=== PATIENT | female | born 1960 | race Caucasian/White ===

== ENCOUNTER → 2018-01-27 13:05 | Outpatient (CLI) | payer OTHER, SELFPAY | PROVIDERS: Family Provider Family Medicine; PCP Family Medicine; Visit Provider Internal Medicine Pulmonary Disease | DX: Q24.8 Other specified congenital malformations of heart (principal) | CPT/HCPCS: 71046 ==

== ENCOUNTER → 2019-01-21 | Outpatient (CLI) | payer OTHER, SELFPAY ==
--- NOTE | 2019-01-21 09:55 | RAD_ITS ---
STUDY: X-RAY CHEST REASON FOR EXAM: Female, 58 years old. Pericardial cyst TECHNIQUE: PA and lateral COMPARISON: January 27, 2018. FINDINGS: The lungs are clear and expanded. There is no demonstrated pleural abnormality. Small soft tissue density in the right cardiophrenic sulcus consistent with known pericardial cyst Normal size heart. Normal mediastinum. Tiny calcified left hilar nodes. Normal visualized pulmonary arteries. Normal visualized aortic arch and descending thoracic aorta. Dorsal spine demonstrates mild spondylosis. Normal visualized ribs, clavicles, and shoulders. There is no demonstrated abnormality of the visualized soft tissue structures of the upper abdomen. No change since prior exam RAD/Chest PA and Lateral IMPRESSION: Stable appearance to right pericardial cyst. No acute disease Electronically Signed: Neftaly Johnson MD at 17:20 EDT , Service support ,
== END | disposition home or self-care (01) ==
PROVIDERS: Family Provider Family Medicine; PCP Family Medicine; Referring Provider Internal Medicine Pulmonary Disease; Visit Provider Internal Medicine Pulmonary Disease
DX: Q24.8 Other specified congenital malformations of heart (principal)
CPT/HCPCS: 71046

== ENCOUNTER → 2022-02-13 | Outpatient (CLI) | payer OTHER, SELFPAY ==
--- NOTE | 2022-02-13 08:37 | BI_ITS ---
MAMMOGRAPHY - BILATERAL SCREENING REASON FOR EXAM: Female, 61 years old. Routine annual screening examination. PERTINENT HISTORY: Aunt with breast cancer. TECHNIQUE: Digital bilateral breast tho (3D mammographic acquisition) in the CC and MLO projections. 2-D mediolateral oblique (MLO) and craniocaudad (CC) views of both breasts were obtained. CAD: Full Field Digital Mammography with Computer Added Detection was performed. COMPARISON: Comparison is made with prior outside examination dated 02/12/2021. FINDINGS: Breast Composition: The breasts are extremely dense, which lowers the sensitivity of mammography. There are no dominant masses or suspicious calcifications. Stable small benign-appearing bilateral axillary lymph nodes. No other significant abnormalities are identified. There has been no significant change since the prior study. BI/SCRN MAMM (CAD)W/THO BILAT IMPRESSION: Stable bilateral screening mammogram. Yearly follow-up mammogram recommended. (A) ASSESSMENT CATEGORY: BIRADS Category 2: Benign. A letter regarding these results will be sent to the patient by the facility within 30 days. Approximately 10% of breast cancers are not detected by mammography. A normal mammogram should not delay biopsy of a clinically suspicious abnormality. [id number] Electronically Signed: Anthony Montalvo MD at 9:59 EDT ,
== END | disposition home or self-care (01) ==
LOC: OPBI 08:36
PROVIDERS: PCP Internal Medicine; Visit Provider Internal Medicine
DX: Z12.31 Encounter for screening mammogram for malignant neoplasm of breast (principal); N60.19 Diffuse cystic mastopathy of unspecified breast
CPT/HCPCS: 77063; 77067

== ENCOUNTER → 2023-02-19 | Outpatient (CLI) | payer OTHER, SELFPAY ==
--- NOTE | 2023-02-19 08:46 | BI_ITS ---
MAMMOGRAPHY - BILATERAL SCREENING REASON FOR EXAM: Female, 62 years old. Routine annual screening examination. PERTINENT HISTORY: Aunt with breast cancer. TECHNIQUE: Digital bilateral breast tho (3D mammographic acquisition) in the CC and MLO projections. 2-D mediolateral oblique (MLO) and craniocaudad (CC) views of both breasts were obtained. CAD: Full Field Digital Mammography with Computer Added Detection was performed. COMPARISON: Comparison is made with prior study dated February 13, 2022. FINDINGS: Breast Composition: The breasts are extremely dense, which lowers the sensitivity of mammography. There are no dominant masses or suspicious calcifications. Stable small benign-appearing bilateral axillary lymph nodes. No other significant abnormalities are identified. There has been no significant change since the prior study. BI/SCRN MAMM (CAD)W/THO BILAT IMPRESSION: Stable bilateral screening mammogram. Yearly follow-up mammogram recommended. (A) ASSESSMENT CATEGORY: BIRADS Category 2: Benign. A letter regarding these results will be sent to the patient by the facility within 30 days. Approximately 10% of breast cancers are not detected by mammography. A normal mammogram should not delay biopsy of a clinically suspicious abnormality. [id number] Electronically Signed: Anthony Montalvo MD at 10:07 EDT ,
== END | disposition home or self-care (01) ==
LOC: OPBI 08:45
PROVIDERS: PCP Internal Medicine; Referring Provider Internal Medicine; Visit Provider Internal Medicine
DX: Z12.31 Encounter for screening mammogram for malignant neoplasm of breast (principal); Z80.3 Family history of malignant neoplasm of breast
CPT/HCPCS: 77063; 77067

== ENCOUNTER 2023-11-24 09:09 | Outpatient (CLI) | payer OTHER, SELFPAY ==
[2023-11-24 10:20] LABS: Absolute Lymphocyte Count 3.36 X10^3/uL (0.83-4.51); Absolute Neutrophil Count 3.2 X10^3/uL (2.0-7.7); Basophil# 0.11 X10^3/uL; Basophil% 1.5 % (0-1); Eosinophil# 0.22 X10^3/uL; Hematocrit 41.1 % (37-47); Hemoglobin 13.5 g/dL (12.0-15.0); Lymphocyte # 3.36 X10^3/ul (0.83-4.51); Lymphocyte % 46.3 % (19-41); Mean Corp Hgb Conc 32.8 g/dL (32-36); Mean Corpuscular Hgb 30.5 pg (27.0-32.0); Mean Platelet Vol. 10.6 fl (6.2-12.0); Monocyte# 0.39 X10^3/uL; Monocyte% 5.4 % (0-10); NRBC Flagged by Analyzer 0 % (0-5); Neutrophil # 3.15 X10^3/uL (2.7-7.7); Neutrophil % 43.4 % (47-70); POSITIVE MORPHOLOGY YES; Platelet Count 294 K/mm3 (150-450); RBC Distribution Width CV 12.6 % (11.6-14.6); RBC Distribution Width SD 43.3 fl (35.1-43.9); Red Blood Count 4.42 M/mm3 (4.2-5.4); White Blood Count 7.3 K/mm3 (4.4-11.0)
[2023-11-24 10:30] LABS: Differential Indicated SCAN CRITERIA MET
[2023-11-24 10:41] LABS: Vitamin D,25 Hydroxy 24.2 ng/mL
[2023-11-24 10:48] LABS: ALB/GLOB Ratio 0.8 RATIO (0.9-2.4); AST(SGOT) 29 U/L (15-37); Alanine Aminotransfer ALT/SGPT 41 U/L (13-56); Albumin, Serum 3.3 g/dL (3.2-5.0); Alkaline Phosphatase 134 U/L (45-117); Anion Gap 3 (5-15); BUN 10 mg/dL (7-18); Calcium,Total 8.8 mg/dL (8.5-10.1); Chloride 107 mmol/L (98-107); Cholesterol 204 mg/dL (200); Creatinine, Serum 0.56 mg/dL (0.55-1.02); EST Glomerular Filtration Rate 117 mL/min (>60); Est Glom Filt Rate - Afr Amer 142 mL/min (>60); Free T3 2.6 pg/mL (2.18-3.98); Globulin 3.9 g/dL (2.2-4.2); Glucose 92 mg/dL (74-106); High Density Lipoprotein 67 mg/dL; Potassium 4.2 mmol/L (3.5-5.1); Protein, Total 7.2 g/dL (6.4-8.2); Sodium Level 138 mmol/L (136-145); T4 Free Direct 1.02 ng/dL (0.76-1.46); Thyroid Stim Hormone (TSH) 3.45 uIU/mL (0.358-3.74); Triglycerides 77 mg/dL; Very Low Density Lipoprotein 15 mg/dL (5-40)
[2023-11-24 11:09] LABS: Atypical Lymphocyte 1+ %
--- NOTE | 2023-11-24 11:59 | RAD_ITS ---
HISTORY: Cough, URI. TECHNIQUE: XR Chest 2 Views. COMPARISON: 01/21/2019. FINDINGS: CARDIOMEDIASTINAL BORDERS: Cardiac silhouette within normal limits in size with convexity at the right cardiophrenic angle again seen, probable pericardial cyst. Mediastinal contour unremarkable. LUNGS: Radiographically clear. PLEURA: No pleural effusion or pneumothorax seen. OSSEOUS STRUCTURES: Unremarkable. RAD/Chest PA and Lateral IMPRESSION: No acute cardiopulmonary process identified. Electronically Signed: Ladonna Alcantara MD at 9:00 EDT ,
== END 2023-11-24 23:59 | disposition home or self-care (01) ==
PROVIDERS: PCP Internal Medicine; Referring Provider Internal Medicine; Visit Provider Internal Medicine
DX: Z00.00 Encounter for general adult medical examination without abnormal findings (principal); J06.9 Acute upper respiratory infection, unspecified; R05.9 Cough, unspecified
CPT/HCPCS: 36415; 71046; 80053; 80061; 82306; 84439; 84443; 84481; 85025

== ENCOUNTER → 2024-02-24 | Outpatient (CLI) | payer OTHER, SELFPAY ==
--- NOTE | 2024-02-24 10:51 | BI_ITS ---
MAMMOGRAPHY - BILATERAL SCREENING REASON FOR EXAM: Female, 63 years old. Routine annual screening examination. PERTINENT HISTORY: Aunt with breast cancer. TECHNIQUE: Digital bilateral breast tho (3D mammographic acquisition) in the CC and MLO projections. 2-D mediolateral oblique (MLO) and craniocaudad (CC) views of both breasts were obtained. CAD: Full Field Digital Mammography with Computer Added Detection was performed. COMPARISON: Comparison is made with prior study February 19, 2023 and February 13, 2022. FINDINGS: Breast Composition: The breasts are extremely dense, which lowers the sensitivity of mammography. There are no dominant masses or suspicious calcifications. No other significant abnormalities are identified. There has been no significant change since the prior study. BI/SCRN MAMM (CAD)W/THO BILAT IMPRESSION: Stable bilateral screening mammogram. Yearly follow-up mammogram recommended. (A) ASSESSMENT CATEGORY: BIRADS Category 1: Negative. A letter regarding these results will be sent to the patient by the facility within 30 days. Approximately 10% of breast cancers are not detected by mammography. A normal mammogram should not delay biopsy of a clinically suspicious abnormality. [id number] Electronically Signed: Anthony Montalvo MD at 12:01 EDT ,
== END | disposition home or self-care (01) ==
LOC: OPBI 10:45
PROVIDERS: PCP Internal Medicine; Referring Provider Internal Medicine; Visit Provider Internal Medicine
DX: Z12.31 Encounter for screening mammogram for malignant neoplasm of breast (principal); Z80.3 Family history of malignant neoplasm of breast
CPT/HCPCS: 77063; 77067

== ENCOUNTER → 2024-07-20 | Outpatient (CLI) | payer OTHER, MEDICARE, SELFPAY | END | disposition home or self-care (01) | LOC: LABSPEC 11:39 | PROVIDERS: PCP Internal Medicine; Visit Provider Internal Medicine | DX: R30.0 Dysuria (principal) | CPT/HCPCS: 87077; 87086; 87088; 87186 ==

== ENCOUNTER 2025-02-24 04:53 | Emergency (ER) | payer MEDICARE, OTHER, SELFPAY ==
[2025-02-24] VITALS (9 sets, daily range): BP systolic 112–137; BP diastolic 56–75; PULSE 80–91; RESP 10–20; TEMP 36.6–37.2; O2SAT 95–100; BMI 24.0
--- NOTE | 2025-02-24 05:35 | RAD_ITS ---
PROCEDURE: CHEST PA AND LATERAL 02/24/2025 REASON FOR EXAM: CHEST PAIN TECHNIQUE: Procedure Code: RADCXR Modality: DX Procedure: CHEST PA AND LATERAL COMPARISON: November 24, 2023 FINDINGS: Hardware: EKG leads Heart: Normal Mediastinum: The mediastinal contour is unremarkable. Lungs: Clear. No pneumothorax or pleural effusion. Bones: The bones are unremarkable. RAD/Chest PA and Lateral IMPRESSION: No acute abnormality Reading Location: [id number]
[2025-02-24 05:45] LABS: Hematocrit 39.2 % (37-47); Hemoglobin 13.4 g/dL (12.0-15.0); Immature Granulocytes Count 0.030 X10^3/uL (0.0-0.0); Mean Corp Hgb Conc 34.2 g/dL (32-36); Mean Corpuscular Volume 89.5 fL (81-99); Mean Platelet Vol. 10.9 fl (6.2-12.0); NRBC Flagged by Analyzer 0 % (0-5); Platelet Count 221 K/mm3 (150-450); RBC Distribution Width CV 12.8 % (11.6-14.6); RBC Distribution Width SD 42.5 fl (35.1-43.9); Red Blood Count 4.38 M/mm3 (4.2-5.4); White Blood Count 5.1 K/mm3 (4.4-11.0)
--- OUTSIDE RECORDS SUMMARY | 2025-02-24 05:45 | XMS RPT_ITS | CCD ---
Author Organization [facility] Care Team Providers Care Commonwealth Attorney Name Role Phone Radha YANG, Luis Daniel Werner Primary Care Provider Bonita ARSHAD MD, Mateusz Mcgee Primary Care Provider Meg haleigh Siddiqui MD, Orly Thurston Primary Care Provider ORLY SIDDIQUI Primary Care Unavailable LEDY JAMES Attending Unavailable SELF Referring Unavailable Orly Siddiqui Referring Unavailable Orly Siddiqui Primary Care Unavailable Pamela Kaiser Attending UnavailOrly Ahn Primary Care Unavailable Orly Siddiqui Attending Unavailable Orly Siddiqui Referring Unavailable Orly Siddiqui Primary Care Unavailable Orly Siddiqui Attending Unavailable Orly Siddiqui Primary Care Unavailable Shaun Fink Attending Unavailable Orly Siddiqui Referring Unavailable Orly Siddiqui Primary Care Unavailable Manny Brown Attending Unavailable Orly Siddiqui Referring Unavailable Allergies Allergy Classification Reported Allergen(s) Allergy Type Date of Onset Reaction(s) Facility (2 sources) Bacitracin Drug Allergy 2 [facility] (1 source) Contrast media Allergy to substance 2 [facility] Work Phone: (2 sources) Neomycin Drug Allergy 2 [facility] (2 sources) Polymyxin B Drug Allergy 2 [facility] (4 sources) bacitracin / neomycin / polymyxin b; Translations: [NEOMYCIN-BACITRAC IN-POLYMYXIN] Drug Allergy 6 [facility] Work Phone: (3 sources) IMAGING DYE [Other] Propensity to adverse reactions 6 Intolerance [facility] (1 source) Triiodobenzoic Acids Allergy to substance [address] [facility] (1 source) OTHER; Translations: [OTHER] Propensity to adverse reactions (disorder) 6 [facility] (1 source) Bacitracin Drug Allergy [address] [facility] Rep[facility] (1 source) Neomycin Drug Allergy [address] [facility] (1 source) Iodinated Contrast Media Drug allergy (disorder) [address] [facility] Rep[facility] (1 source) polymyxin B Drug allergy (disorder) [address] [facility] Rep[facility] Medications Current Medications Medication Drug Class(es) Dates Sig (Normalized) Sig (Original) estradiol 0.1 mg/ml vaginal cream (3 sources) Estrogen Start: 01-21-2019 estradiol (ESTRACE) 0.01 % (0.1 mg/gram) vaginal cream Use a pea sized amount to the vaginal area 3 times a week. 1 Tube 4 01/21/2019 Active Comment on above: Use a pea sized amou nt to the vaginal area 3 times a week. levothyroxine sodium 0.075 mg oral tablet (7 sources) l-Thyroxine Start: 05-04-2020 End: 09-02-2022 take 75 ug by mouth once daily Levothyroxine Active 75 MCG PO DAILY September 02, 2022 7:47am Problems Active Problems Problem Classification Problem Date Documented Date Episodic/Chronic Cardiac and circulatory congenital anomalies (3 sources) Pericardial cyst; Translations: [Other specified congenital malformations of heart] Onset: 02-17-2018 02-17-2018 Chronic Genitourinary symptoms and ill-defined conditions (1 source) Dysuria; Translations: [Dysuria] Onset: 11-30-2024 Episodic Menopausal disorders (1 source) Postmenopausal atrophic vaginitis; Translations: [Postmenopausal atrophic vaginitis] Onset: 03-19-2024 Chronic Nonmalignant breast conditions (2 sources) Fibrocystic disease of breast; Translations: [Diffuse cystic mastopathy of unspecified breast] 09-04-2021 Chronic Osteoarthritis (1 source) Osteoarthrosis of the carpometacarpal joint of the thumb; Translations: [Unilateral primary osteoarthritis of first carpometacarpal joint, right hand] 11-01-2024 Chronic Other and ill-defined heart disease (3 sources) Rupture of chordae tendineae; Translations: [Rupture of chordae tendineae, not elsewhere classified] Onset: 11-14-2016 11-14-2016 Chronic Other connective tissue disease (1 source) Triggering of digit; Translations: [Trigger finger, right middle finger] 11-01-2024 Episodic Spondylosis; intervertebral disc disorders; other back problems (1 source) Chronic low back pain; Translations: [Chronic midline low back pain without sciatica] 05-22-2020 Episodic Thyroid disorders (3 sources) Hypothyroidism; Translations: [Hypothyroidism, unspecified] Onset: 07-16-2013 07-16-2013 Chronic Unclassified (1 source) Acute cough; Translations: [Acute cough] Onset: 11-30-2024 Urinary tract infections (1 source) Acute cystitis with hematuria; Translations: [Acute cystitis with hematuria] Onset: 11-30-2024 Episodic Past or Other Problems Problem Classification Problem Date Documented Date Episodic/Chronic Allergic reactions (2 sources) Atopic dermatitis; Translations: [Other atopic dermatitis] Onset: 03-11-2008 Resolved: 11-24-2012 11-24-2012 Chronic Allergic reactions (5 sources) Solar degeneration; Translations: [Other skin changes due to chronic exposure to nonionizing radiation] Onset: 02-06-2006 Resolved: 11-24-2012 06-18-2011 Episodic Benign neoplasm of uterus (3 sources) Uterine leiomyoma; Translations: [Leiomyoma of uterus, unspecified] Onset: 02-14-2012 02-14-2012 Episodic Deficiency and other anemia (2 sources) Iron deficiency anemia; Translations: [Iron deficiency anemia, unspecified] Onset: 02-28-2010 Resolved: 11-14-2016 11-14-2016 Episodic E Codes: Adverse effects of medical drugs (3 sources) Allergic reaction to substance; Translations: [Adverse effect of diagnostic agents, initial encounter] Onset: 09-26-2014 09-26-2014 Episodic Menstrual disorders (2 sources) Excessive and frequent menstruation; Translations: [Excessive and frequent menstruation with regular cycle] Onset: 02-14-2012 Resolved: 09-26-2014 09-26-2014 Chronic Other and unspecified benign neoplasm (2 sources) Benign neoplasm of skin of trunk; Translations: [Other benign neoplasm of skin of trunk] Onset: 09-18-2006 Resolved: 11-24-2012 11-24-2012 Episodic Other and unspecified benign neoplasm (2 sources) Benign neoplasm of skin of lower limb; Translations: [Other benign neoplasm of skin of unspecified lower limb, including hip] Onset: 09-18-2006 Resolved: 11-24-2012 11-24-2012 Episodic Other and unspecified benign neoplasm (2 sources) Dermatofibroma; Translations: [Other benign neoplasm of skin of unspecified lower limb, including hip] Onset: 07-11-2009 Resolved: 09-26-2014 09-26-2014 Episodic Other and unspecified benign neoplasm (2 sources) Dermatofibroma of right lower limb; Translations: [Other benign neoplasm of skin of right lower limb, including hip] Onset: 11-24-2012 Resolved: 09-26-2014 09-26-2014 Episodic Other and unspecified benign neoplasm (2 sources) Hemangioma of skin; Translations: [Hemangioma of skin and subcutaneous tissue] Onset: 02-26-2013 Resolved: 09-26-2014 09-26-2014 Episodic Other circulatory disease (2 sources) Osler hemorrhagic telangiectasia syndrome; 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] Onset: 03-23-2007 Resolved: 05-20-2012 05-20-2012 Chronic Other circulatory disease (2 sources) Non-neoplastic nevus; Translations: [Nevus, non-neoplastic] Onset: 09-18-2006 Resolved: 11-24-2012 11-24-2012 Episodic Other lower respiratory disease (3 sources) Other nonspecific abnormal finding of lung field; Translations: [Swelling, mass, or lump in chest] Onset: 09-23-2014 11-14-2016 Episodic Other screening for suspected conditions (not mental disorders or infectious disease) (4 sources) Patient encounter status; Translations: [Encounter for other screening for malignant neoplasm of breast] Onset: 03-15-2024 Episodic Other skin disorders (2 sources) Actinic keratosis; Translations: [Actinic keratosis] Onset: 02-06-2006 Resolved: 09-26-2014 09-26-2014 Episodic Other skin disorders (2 sources) Seborrheic keratosis; Translations: [Other seborrheic keratosis] Onset: 02-06-2006 Resolved: 11-24-2012 11-24-2012 Episodic Other skin disorders (2 sources) Disorder of skin pigmentation; Translations: [Disorder of pigmentation, unspecified] Onset: 02-06-2006 Resolved: 11-24-2012 11-24-2012 Episodic Other skin disorders (2 sources) Sebaceous cyst of skin; Translations: [Sebaceous cyst] Onset: 02-06-2006 Resolved: 11-24-2012 11-24-2012 Episodic Other skin disorders (2 sources) Inflamed seborrheic keratosis; Translations: [Inflamed seborrheic keratosis] Onset: 03-23-2007 Resolved: 09-26-2014 09-26-2014 Episodic Other skin disorders (2 sources) Acne; Translations: [Other acne] Onset: 03-11-2008 Resolved: 11-24-2012 11-24-2012 Episodic Viral infection (2 sources) Verruca vulgaris; Translations: [Viral wart, unspecified] Onset: 03-23-2007 Resolved: 11-24-2012 11-24-2012 Episodic Results Test Name Value Interpretation Reference Range Facil ity CNOVon 11-01-2024 CNOV Office Visit (ORTHWS ) MADALYN CASTANEDA ([id number]) 1960 F Date Time Provider Department 11/01/24 1:15 PM LEDY JAMES During your visit today, we recorded the following information about you: Ledy James MD 11/01/2024 2:29 PM Signed Ledy James MD Department of Orthopaedics Orthopa[facility] [address] [place] [id number] Dept: [phone] Dept November 01, 2024 CHIEF COMPLAINT: New and Pain of the Right Hand HPI Madalyn is a 64-year-old female presenting with right middle finger triggering at night. Madalyn reports that her right middle finger triggers every night, but never during the day. She describes the finger as ratcheting and notes a tight sensation in the joint, though it is not painful. She is able to manually extend the finger when it triggers. She denies any previous episodes of similar symptoms. She also reports stiffness in her hands at night, which she attributes to frequent tossing and turning during sleep. She notes that her hands often feel stiff upon waking, and she has difficulty opening things and gripping, particularly in the right thumb. She experiences pain in the right thumb when gripping, which she attributes to arthritis. She also reports swelling and tenderness in the right ring finger, which she believes is related to arthritis. ASSESSMENT: M65.331 Trigger middle finger of right hand (primary encounter diagnosis) M18.11 Primary osteoarthritis of first carpometacarpal joint of right hand 1. Trigger middle finger of right hand (M65.331) Experiencing nocturnal triggering of the right middle finger, with palpable tightness at the A1 heather. No significant tenderness or daytime locking observed on examination. - Educated patient on the pathophysiology of trigger finger, including the role of tendon swelling and the A1 heather. - Provided a ring splint to be worn at night to prevent flexion and reduce the risk of triggering. - Discussed the potential for corticosteroid injection if symptoms persist or worsen. - Advised monitoring symptoms and follow-up if no improvement is noted with splint use. 2. Primary osteoarthritis of first carpometacarpal joint of right hand (M18.11) Exhibiting signs of osteoarthritis in the first carpometacarpal joint, with associated pain and difficulty in gripping and pinching activities. - Provided a thumb splint to offload the joint during activities that exacerbate symptoms. - Recommended [id number] Voltaren gel for topical application to the affected joint to reduce inflammation and pain. - Discussed the possibility of corticosteroid injections or surgical intervention if conservative measures fail to provide relief. Will continue to monitor patient for Trigger middle finger of right hand (primary encounter diagnosis) Primary osteoarthritis of first carpometacarpal joint of right hand, patient to schedule visit as per follow up discussed. OBJECTIVE: Ms. Madalyn Castaneda is a pleasant 64 year old in no apparent distress. Gen:LMP 02/23/2012 nl development, non obese, no deformities ENT: Normocephalic, normal hearing, moist mucosa CV: Pulses:Radial= 2+ and symmetric, capillary refill < 2 secs, no peripheral edema/varicosities Skin: no rash, bruising or lesions. Good turgor. Psych: cooperative and appropriate, alert and oriented x 3, good mood and affect. Musculoskeletal: - Musculoskeletal: - Right Middle Finger: Palpable crepitus over the A1 heather, no significant tenderness noted. No locking. Mild swelling and minor tenderness at the Thumb, basal joint. Arthritic changes at DIP of the index,and stiffness at the ring finger, PIP joint. 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 Normal [facility] Urine Cultureon 07-22-2024 URC Escherichia coli [place] Count 80,000-100,000 Escherichia coli: REACTION Ampicillin Islt STEVE <=2 Ampicillin+Sulbac Islt STEVE <=2 S Cefepime Islt STEVE <=0.12 S cefTRIAXone Islt STEVE <=0.25 S Ciprofloxacin Islt STEVE <=0.06 S B-Lactamase Extended Susc Islt NEG Gentamicin Islt STEVE <=1 S levoFLOXacin Islt STEVE <=0.12 S Meropenem Islt STEVE <=0.25 S Nitrofurantoin Islt STEVE <=16 S Pip+Tazo Islt STEVE <=4 S TMP SMX Islt STEVE <=[address] [facility] Comment on above: Performed By: #### M [id number] #### [facility] [address] [place], [address] Urgent Care Visit Reporton 0 07-20-2024 Urgent Care Visit Report [facility] [address], [address] [place] [address] OFFICE VISIT Date of Service: 07/20/24 MR#: [id number] Acct: [id number] Name: MADALYN CASTANEDA Rep #: [id number] : 1960 Provider: LIZANDRO Fink Age/Sex: 64/F Location: [facility] [place] Status: Signed Intake Vital Signs 07/09/24 09:37 07/20/24 11:25 Height 5 ft 6 in 5 ft 6 in Weight: 150 lb 6 oz 149 lb 6 oz BMI 24.3 24.0 BP 130/82 H 120/82 H Blood Pressure Location Rt brachial Position Sitting Sitting Respiration 16 Pulse 80 78 Pulse Source NIBP Temp 98.7 F 98.7 F Temp Source Oral Oral Pulse Oximetry (%) 97 98 Oxygen Delivery Method room air room air Intake Visit Reasons: Urinary tract infection Chief Complaint: c Accompanied by: Self Allergies bacitracin (From Neosporin ([id number])) Allergy (Mild, Verified 07/20/24 11:26) rash Iodinated Contrast Media (CT) Allergy (Mild, Verified 07/20/24 11:26) Hives neomycin (From Neosporin ([id number])) Allergy (Mild, Verified 07/20/24 11:26) rash polymyxin B (From Neosporin ([id number])) Allergy (Mild, Verified 07/20/24 11:26) rash Medications ???Medication ???Instructions ???Recorded ???Confirmed ???Type levothyroxine 75 mcg tablet 75 mcg PO DAILY #90 tabs 08/19/23 07/20/24 Rx benzonatate 100 mg capsule 100 mg PO TID PRN PRN cough 4 days 07/20/24 07/20/24 Rx #10 caps nitrofurantoin 100 mg PO Q12H 5 days #10 caps 10/0807/20/24 Rx monohydrate/macrocrys tals 100 mg capsule (Macrobid) Have you fallen in the past year?: No Nurse's Note: Patient has been having some burning with urination and frequency and not empting her bladder completely. [facility] Medical History (Updated 07/20/24 @ 11:34 by LIZANDRO Fierro) Acute cough Thyroglossal cyst Pericardial cyst Thyroid disease Skin cancer Surgical History History of hysterectomy Family History Mother Cancer Thyroid disorder Father Cancer CVA (cerebral vascular accident) Social History (Updated 03/19/24 @ 08:03 by Skylar Byrd) household members: spouse Smoking Status: Never smoker alcohol intake: current alcohol intake frequency: holidays/special occasions only substance use type: does not use what type of physical activity do you participate in: walking frequency: 3-4 times per week seatbelt use: always do you feel safe at home: Yes additional social history: - Wander HPI HPI Chief Complaint: c Details: MADALYN CASTANEDA, is a 64 F who presents to the office today for HPI: Patient presents today with concerns for possible UTI with urinary frequency urgency and burning that started yesterday. She also notes a residual cough after having what was most likely influenza 1-2 weeks ago. She otherwise denies any nausea vomiting or fever. ROS: As noted in HPI Physical Exam: VITALS: Reviewed. GEN: Healthy appearing, well-developed, NAD. PSYCH: AOx3. Normal memory, mood, and affect. HEENT -Eyes: -No discharge or redness; -Ears: -Mouth and throat: Moist mucous membranes. NECK: CV: Regular rate and rhythm LUNGS: Normal respiratory effort. Lungs clear bilaterally. SKIN: Warm, well perfused. No skin rashes or abnormal lesions noted. MSK: Normal gait. NEURO: Ambulating with no limitations. Normal muscle strength and tone. No focal deficits. Results POC Urinalysis Dip (Clinic) Office Urine Color YELLOW Last Edit by Charlee Dial MA on 07/20/24 11:28 Office Urine Clarity Cloudy Last Edit by Charlee Dial MA on 07/20/24 11:28 Office Urine Glucose Negative Last Edit by Charlee Dial MA on 07/20/24 11:28 Office Urine Ketones Trace (5) Last Edit by Charlee Dial MA on 07/20/24 11:28 Off Ur Spec Moore 1.010 Last Edit by Charlee Dial MA on 07/20/24 11:28 Office Urine pH 5.0 Last Edit by Charlee Dial MA on 07/20/24 11:28 Office Urine Bilirubin Negative Last Edit by Charlee Dial MA on 07/20/24 11:28 Office Urine Urobilinogen 1 mg/dL Last Edit by Charlee Dial MA on 07/20/24 11:28 Office Urine Blood Hemolyzed Last Edit by Charlee Dial MA on 07/20/24 11:28 Office Urine Blood Hemolyzed Large Last Edit by Charlee Dial MA on 07/20/24 11:28 Office Urine Protein Negative Last Edit by Charlee Dial MA on 07/20/24 11:28 Office Urine Nitrate Negative Last Edit by Charlee Dial MA on 07/20/24 11:28 Off Ur Leukocytes Positive Last Edit by Charlee Dial MA on 07/20/24 11:28 moderate Charlee Dial 07/20/24 11:28 Coding Level of Care Code Off vis,new,level 3 Diagnoses Acute cystitis with hematuria N30.01 Urinary tract infection type: acute cystitis Hematuria presence: with hematuria Acute cough R05. (more content not included)... Normal [facility] Urgent Care Visit Reporton 0 07-09-2024 Urgent Care Visit Report [facility] [address], [address] [place] [address] OFFICE VISIT Date of Service: 07/09/24 MR#: [id number] Acct: [id number] Name: MADALYN CASTANEDA Everardo Rep #: [id number] : 1960 Provider: DANIELA Hernandez Age/Sex: 63/F Location: [facility] – [place] Status: Signed Intake Vital Signs 03/19/24 08:03 07/09/24 09:37 Height 5 ft 6 in 5 ft 6 in Weight: 150 lb 6 oz BMI 24.3 BP 130/82 H Blood Pressure Location Rt brachial Position Sitting Respiration 16 Pulse 80 Pulse Source NIBP Temp 98.7 F Temp Source Oral Pulse Oximetry (%) 97 Oxygen Delivery Method room air Intake Visit Reasons: Cough Chief Complaint: cough, fever, wheeze 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 Is patient in pain?: No Allergies bacitracin (From Neosporin (rky-hcn-ipmcn)) Allergy (Mild, Verified 07/09/24 09:46) rash Iodinated Contrast Media (CT) Allergy (Mild, Verified 07/09/24 09:46) Hives neomycin (From Neosporin (lbd-fho-xlaeb)) Allergy (Mild, Verified 07/09/24 09:46) rash polymyxin B (From Neosporin (tlu-vlm-ovbhh)) Allergy (Mild, Verified 07/09/24 09:46) rash Medications ???Medication ???Instructions ???Recorded ???Confirmed ???Type levothyroxine 75 mcg tablet 75 mcg PO DAILY #90 tabs 08/19/23 07/09/24 Rx Is last menstrual period known: No Post menopausal: Yes Patient : No Have you fallen in the past year?: No Nurse's Note: cough, fever, wheeze x 36 hours. declines viral testing [facility] Medical History Thyroglossal cyst Pericardial cyst Thyroid disease Skin cancer Surgical History History of hysterectomy Family History Mother Cancer Thyroid disorder Father Cancer CVA (cerebral vascular accident) Social History (Updated 03/19/24 @ 08:03 by Skylar Byrd) household members: spouse Smoking Status: Never smoker alcohol intake: current alcohol intake frequency: holidays/special occasions only substance use type: does not use what type of physical activity do you participate in: walking frequency: 3-4 times per week seatbelt use: always do you feel safe at home: Yes additional social history: - Wander HPI HPI Chief Complaint: cough, fever, wheeze Details: MADALYN CASTANEDA, is a 63 F who presents to the office today for cough, congestion and fever. Patient states that she has had the fever intermittently for the past 3 days. She wants to make sure that she does not have abnormal lung sounds as she felt like she had some gurgling last night that resolved. She is unaware of her fever Tmax. She denies hemoptysis, shortness of breath or difficulty breathing. No loss of taste or smell. No other associated symptoms or alleviating/aggravati ng factors. ROS Const Constitutional: No other (6 system ROS completed with pertinent findings in the HPI otherwise normal.) Exam Const General: cooperative and well developed HENMT Head: normal to inspection and atraumatic Ears: hearing grossly normal bilaterally Nose: nasal discharge clear Face and sinus: normal facial exam Mouth: oral mucosae normal Throat: abnormal tonsil bilaterally hypertrophy 1+ Resp Effort Inspection: normal respiratory effort and no audible wheezes Auscultation: Bilateral: Clear to Auscultation Cardio Palpation: normal PMI Rate: regular rate Rhythm: regular rhythm Neuro General: patient alert and CN's II-XI intact bilaterally Psych Appearance: grossly normal Mental Status: mental status grossly normal Coding Level of Care Code Off vis,new,level 3 Diagnoses Acute URI J06.9 Assessment and Plan Assessment and Plan (1) Acute URI: Status: Acute Plan: Encouraged to get plenty of rest, drink lots of clear liquids, and use Tylenol or Ibuprofen (unless contraindicated) for fever and comfort. Patient also educated on other symptomatic management techniques. To be seen in 7-10 days if no improvement; sooner if worsening of symptoms. Patient advised of potential red flags and when appropriate to report to the ED. Patient verbalized understanding and agreement with all the above. Clinical Quality Measures Falls Risk Screening/Assistive Devices Have you fallen in the past year?: No 07/09/24 1108 Date Manny Martinez Signature: Date (if applicable) CC: Normal [facility] [employer] Office Visit Reporton 03-19-2024 [employer] Office Visit Report [address], [address] [place] [address] OFFICE VISIT Date of Service: 03/19/24 MR#: [id number] Acct: [id number] Name: MADALYN CASTANEDA Rep #: [id number] : 1960 Provider: Dr. 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 Is patient in pain?: No Allergies bacitracin (From Neosporin ([id number]-[id number]-xxhfn)) Allergy (Mild, Verified 03/19/24 07:58) rash Iodinated Contrast Media (CT) Allergy (Mild, Verified 03/19/24 07:58) Hives neomycin (From Neosporin ([id number])) Allergy (Mild, Verified 03/19/24 07:58) rash polymyxin B (From Neosporin ([id number])) Allergy (Mild, Verified 03/19/24 07:58) rash Medications ???Medication ???Instructions ???Recorded ???Confirmed ???Type levothyroxine 75 mcg tablet 75 mcg PO DAILY #90 tabs 08/19/23 03/19/24 Rx oxybutynin chloride 5 mg tablet 5 mg PO BID PRN bladder spasms 30 03/19/24 03/19/24 Rx days #60 tabs Is last menstrual period known: No Post menopausal: Yes Patient : No : No Control Method: Hysterectomy PFSH Medical History Thyroglossal cyst Pericardial cyst Thyroid disease Skin cancer Surgical History History of hysterectomy Family History Mother Cancer Thyroid disorder Father Cancer CVA (cerebral vascular accident) Social History (Updated 03/19/24 @ 08:03 by Skylar Byrd) household members: spouse Smoking Status: Never smoker alcohol intake: current alcohol intake frequency: holidays/special occasions only substance use type: does not use what type of physical activity do you participate in: walking frequency: 3-4 times per week seatbelt use: always do you feel safe at home: Yes additional social history: - Wander History 1 Elective abortions Hx Para 1 Spontaneous abortions Hx # Term Pregnancies Ectopic pregnancies Hx # Pregnancies Multiple births # of living children 1 Past Pregnancies Del. Date Name GA/Weeks Outcome Route Bth Weight Gen Labor Lgth Anesthesia Del Locatn Provider FOB Unknown Dana HPI annual/per JV Details: MADALYN CASTANEDA is a 63 year old who presents for annual exam. Last PAP: prior to hyst in 2011 (robotic hyst) History of abnormal PAP: no Last mammogram: 02/24/2024 History of abnormal mammogram: no Colon cancer screening: due next year Other preventative health care screenings: followed by pcp has c/o vaginal dryness and over active bladder Female Reproductive History Questions: metorrhagia: No, sexually active: Yes, dyspareunia: No and PCB: No Menopausal Symptoms: No hot flashes, No night sweats, No weight change, No mood changes, No difficulty concentrating, No sleep problems and No change in libido ROS Const Constitutional: Reports as per HPI; Denies fatigue, increased appetite, poor appetite, night sweats, weight gain or weight loss Cardio Card: Denies chest pain Resp Resp: Denies cough or dyspnea GI GI: Reports as per HPI; Denies abdominal pain, bloating, constipation, nausea or vomiting : Reports as per HPI and other; Denies difficulty voiding, dysuria, hematuria, hot flashes, nipple discharge, pelvic pain, prolapse symptoms, urinary frequency, urinary incontinence, urinary urgency, vaginal discharge, vaginal dryness, vaginal odor or vaginal pruritus Skin Skin/Breast: Denies changing lesions, breast mass, breast pain, breast skin changes or nipple discharge Psych Psych: Denies anxiety, change in libido, depression or difficulty concentrating Exam Const General: cooperative, healthy appearing, comfortable, no acute distress, well developed and well groomed HENMT Head: normal to inspection and normocephalic Ears: hearing grossly normal bilaterally and external ears normal Nose: external nose normal Face and sinus: normal facial exam Neck Neck: normal visual inspection, full ROM and no lymphadenopathy Thyroid: thyroid normal Chest Chest palpation inspection: normal inspection of the chest Breast inspection: normal inspection of the breasts and normal inspection of the axillae Breast palpation: normal palpation of (more content not included)... Normal [facility] SCRN MAMM (CAD)W/THO BILATo n 02-24-2024 SCRN MAMM (CAD)W/THO BILAT [facility] Imaging Services [address] [place], [place] [address] SCRN MAMM (CAD)W/THO BILAT MR#: [id number] Acct: [id number] Name: MADALYN CASTANEDA Rep #: [id number] : 1960 F 63 From: Anthony acosta MD PCP: Dr. Orly Siddiqui MD Status: [facility] Study: SCRN MAMM (CAD)W/THO BILAT Date of Exam: 02/14 Exam# [id number] Ordering Dr: Orly Siddiqui MD [id number] MAMMOGRAPHY - BILATERAL SCREENING REASON FOR EXAM: Female, 63 years old. Routine annual screening examination. PERTINENT HISTORY: Aunt with breast cancer. TECHNIQUE: Digital bilateral breast tho (3D mammographic acquisition) in the CC and MLO projections. 2-D mediolateral oblique (MLO) and craniocaudad (CC) views of both breasts were obtained. CAD: Full Field Digital Mammography with Computer Added Detection was performed. COMPARISON: Comparison is made with prior study February 19, 2023 and February 13, 2022. FINDINGS: Breast Composition: The breasts are extremely dense, which lowers the sensitivity of mammography. There are no dominant masses or suspicious calcifications. No other significant abnormalities are identified. There has been no significant change since the prior study. BI/SCRN MAMM (CAD)W/THO BILAT IMPRESSION: Stable bilateral screening mammogram. Yearly follow-up mammogram recommended. (A) ASSESSMENT CATEGORY: BIRADS Category 1: Negative. A letter regarding these results will be sent to the patient by the facility within 30 days. Approximately 10% of breast cancers are not detected by mammography. A normal mammogram should not delay biopsy of a clinically suspicious abnormality. [id number] Electronically Signed: Anthony Montalvo MD at 12:01 EDT , CC: Dr. Orly Siddiqui MD Acquisition Specialist: Signed Normal [facility] XR Lumbar spine 3 Viewson IMPRESSION: Lumbar spine mild degenerative changes. Acquisition Specialist: PSCB Transcribe Date/Time: May 22 2020 4:38P Dictated by : NAJMA GONCALVES MD This examination was interpreted and the report reviewed and electronically signed by: NAJMA GONCALVES MD on May 22 2020 4:39PM [facility] DIVISION OF RADIOLOGY * * *Final Report* * * DATE OF EXAM: May 22 2020 4:35PM [id number] - XR LUMBAR 3V AP/LAT/L5-S1 / PROCEDURE REASON: multiple diagnoses * * * * Physician Interpretation * * * * EXAM TITLE: XR LUMBAR 3V AP/LAT/L5-S1 EXAM DATE/TIME: 05/22/2020 4:35 PM COMPARISON: None. CLINICAL INDICATION/HISTORY: Low back pain. TECHNIQUE: AP, lateral and cone down lateral views of the lumbar spine are presented. FINDINGS: There are five udt-bcs-tukkynr lumbar vertebrae. No fracture or subluxations are noted. The disc spaces are well preserved. There is mild osteophyte formation. Others: A surgical clips seen in the left pelvis. DIVISION OF RADIOLOGY Provider, [facility] - 05/22/2020 * * *Final Report* * * DATE OF EXAM: May 22 2020 4:35PM [id number] - XR LUMBAR 3V AP/LAT/L5-S1 / PROCEDURE REASON: multiple diagnoses * * * * Physician Interpretation * * * * EXAM TITLE: XR LUMBAR 3V AP/LAT/L5-S1 EXAM DATE/TIME: 05/22/2020 4:35 PM COMPARISON: None. CLINICAL INDICATION/HISTORY: Low back pain. TECHNIQUE: AP, lateral and cone down lateral views of the lumbar spine are presented. FINDINGS: There are five mbk-inr-fbyinyf lumbar vertebrae. No fracture or subluxations are noted. The disc spaces are well preserved. There is mild osteophyte formation. Others: A surgical clips seen in the left pelvis. IMPRESSION IMPRESSION: Lumbar spine mild degenerative changes. Acquisition Specialist: PSCИван Transcribe Date/Time: May 22 2020 4:38P Dictated by : NAJMA GONCALVES MD This examination was interpreted and the report reviewed and electronically signed by: NAJMA GONCALVES MD on May 22 2020 4:39PM EST [facility] Radiology Study observation (narrative) [facility] XR Lumbar spine 3 ViewsOrder ed By: Cclinn Provider on 05-22-2020 [facility] Encounters Encounter Date Encounter Type Care Provider Facility Start: 11-01-2024 End: 11-01-2024 Patient encounter procedure Ledy James MD Work Phone: Orthopaedics Comment on above: Trigger middle finge r of right hand (Primary Dx); Primary osteoarthritis of first carpometacarpal joint of right hand Start: 11-01-2024 End: 11-01-2024 ambulatory ORLY ARTUR Facility:[facility] Start: 07-20-2024 End: 07-20-2024 [facility] Facility:[facility] Start: 07-20-2024 End: 07-20-2024 [facility] Facility:[facility] Start: 07-09-2024 End: 07-09-2024 [facility] Facility:[facility] Start: 03-19-2024 Encounter for gynecological examination (general) (routine) without abnormal findings Pamela Kaiser [facility] Start: 03-19-2024 End: 03-19-2024 ambulatory [facility] Facility:[facility] Start: 02-24-2024 End: 02-24-2024 ambulatory [facility] Start: 02-19-2023 End: 02-19-[address] [facility] Work Phone: Start: 02-19-2023 End: 02-19-2023 Patient encounter procedure [facility] Work Phone: Start: 03-20-2022 ambulatory Luis Daniel Garcia MD Work Phone: Internal Medicine [facility] [place] Start: 02-13-2022 End: 02-13-[address] [facility] Work Phone: Start: 02-13-2022 End: 02-13-2022 Patient encounter procedure [facility] Start: 05-22-2020 End: 05-22-2020 Subsequent hospital visit by physician Xr [facility] Work Phone: Radiology Comment on above: Chronic midline low back pain without sciatica [M54.5, G89.29] Procedures Date Procedure Procedure Detail Performing Clinician Start: 02-19-2023 Screening mammography Start: 02-13-2022 Screening mammography Start: 02-12-2021 Mammography Luis Daniel Bowie MD Work Phone: Start: 05-22-2020 Radex spine lumbosac ral 2/3 views Mateusz Mesa MD Start: 04-14-2020 Colonoscopy Luis Daniel Bowie MD Work Phone: Start: 04-13-2020 Lipid 1996 panel - S kimberlee or Plasma Xr [place] Work Phone: Plan of Treatment Date Care Activity Detail Author Start: 2034 RSV Vaccine (1 - 1-d ose 75+ series) RSV Vaccine (1 - 1-dose 75+ series) [facility] Start: 04-14-2030 Colonoscopy COLONOSCOPY [facility] Start: 04-14-2030 COLORECTAL CANCER SCREENING COLORECTAL CANCER SCREENING [facility] Start: 04-14-2030 Screening for malign ant neoplasm of colon [facility] Start: 05-22-2025 Pneumococcal Vaccine : 50+ (1 of 1 - PCV) Pneumococcal Vaccine: 50+ (1 of 1 - PCV) [facility] Comment on above: Postponed from 07/18 (Declined at this time) Start: 04-13-2025 Lipid panel Lipid Screening [facility] Start: 04-13-2025 LIPID SCREEN LIPID SCREEN [facility] Start: 02-14-2025 Influenza vaccination Influenz a Vaccine (Season Ended) [facility] Start: 2024 Advance Directive Discussion Advance Directive Discussion [facility] Start: 2024 Screening for osteoporosis Bone Density Screening [facility] Start: 02-15-2024 Covid-19 Vaccine () Covid-19 Vaccine ( season) [facility] Start: 02-15-2024 Influenza vaccination Influenza Vacc ine (#1) [facility] Start: 07-16-2023 Urine microalbumin profile [facility] Start: 04-13-2023 DIABETES SCREEN DIABETES SCREEN [facility] Start: 04-13-2023 Diabetes Screening Diabetes Screenin g [facility] Start: 02-14-2022 Influenza vaccination INFLUENZA (#1) [facility] Start: 02-12-2022 Mammography MAMMOGRAM [facility] Start: 02-12-2022 Screening for malign ant neoplasm of breast Mammogram Screening [facility] Start: 11-16-2021 ANNUAL PCP TEAM EXHIBIT ELECTRICIAN TAO DISEASE VISIT ANNUAL PCP TEAM CHRONIC DISEASE VISIT [facility] Start: 06-16-2021 DEPRESSION ASSESSMENT DEPRESSION ASS ESSMENT [facility] Start: 2004 COLOGUARD (FIT-DNA) COLOGUARD (FIT-D NA) [facility] Start: [address] COLONOGRAPHY [facility] Start: 2004 FECAL OCCULT BLOOD FECAL OCCULT BLOO D [facility] Start: 2004 Screening for malign ant neoplasm of colon [facility] Start: 2004 SIGMOIDOSCOPY SIGMOIDOSCOPY [facility] Start: 1977 Anxiety Screening Anxiety Screening [facility] Start: 1977 Depression Screening Depression Scre ening [facility] Start: 1977 HIV SCREENING HIV SCREENING [facility] Start: 1977 HIV screening HIV Screening [facility] Start: 01-16-1960 COVID-19 VACCINE (#1) COVID-19 VACCI NE (#1) [facility] End: 04-19-2023 JASEN SCREENING W THO JASEN SCREENING W THO Radiology Routine Encounter for screening mammogram for breast cancer 1 Occurrences starting 03/20/2022 until 04/19/2023 [facility] Work Phone: Comment on above: 1 Occurrences starti ng 03/20/2022 until 04/19/2023 Immunizations Immunization Date Immunization Notes Care Provider Alexey adler 11-20-2020 zoster vaccine recombinant Luis Daniel Garcia MD Work Phone: [facility] Work Phone: 05-22-2020 zoster vaccine recombinant Luis Daniel Garcia MD Work Phone: [facility] 03-29-2020 influenza virus vaccine, unspecified formulation Xr [place] Work Phone: [facility] 03-20-2016 influenza, seasonal, injectable Luis Daniel Garcia MD Work Phone: [facility] 03-22-2015 influenza virus vaccine, unspecified formulation Luis Daniel Garcia MD Work Phone: [facility] 07-16-2013 tetanus toxoid, redu geronimo diphtheria toxoid, and acellular pertussis vaccine, adsorbed Luis Daniel Garcia MD Work Phone: [facility] 04-12-2011 influenza virus vaccine, unspecified formulation Luis Daniel Garcia MD Work Phone: [facility] Payers Date Payer Category Payer Private Health Insurance MMO MED ICARE SUPPLEMENT Member Subscriber Plan / Payer (Effective 2024-Present) Name: Madalyn Castaneda Relation to Subscriber: Self Name: Madalyn Castaneda Payer ID: Not on file Group ID: Not on file Type: Indemnivishnu Address: [place] [id number] 2024 [place] [address] [id number] 2024 Medicare [id number] 2024 Self-pay [id number] 2024 Unknown [id number] 2014 Unknown [id number] 2007 Unknown [employer] [id number] Unknown [facility] [id number] Unknown [id number] Unknown [id number] Unknown [id number] Unknown [id number] Unknown [id number] Social History Date Type Detail Facility Start: 09-04-[facility]21 [facility] ever [facility] Start: 1960 Sex Assigned At Female [facility] Start: 04-05-2011 [facility] Never smoked tobacco [facility] Start: 04-05-2011 Tobacco use and exposure Smoke less tobacco non-user [facility] Start: 11-16-2020 End: 11-01-2024 Alcohol intake Current drinker of alcohol (finding) [facility] Start: 05-16-2020 History SDOH Alcohol Frequency 3 [facility] Start: 05-16-2020 End: 11-16-2020 History SDOH Alcohol Std Drinks 1 [facility] Start: 05-16-2020 History SDOH Social Connections Phone 5 [facility] Start: 05-16-2020 End: 11-16-2020 History SDOH Physical Activity DPW 2 [facility] Start: 05-16-2020 Education 12 [facility] Start: 1960 Sex Assigned At Not on file [facility] Start: 05-16-2020 End: 05-21-2020 History of Social function [facility] Start: 05-16-2020 End: 05-21-2020 Social connection and isolation panel [facility] Do you belong to any clubs or organizations such as presybeterian groups, unions, fraternal or athletic groups, or school groups? Yes [facility] Are you now , , , , never or living with a partner? [facility] How often to you hav e a drink containing alcohol? 2-4 times a month [facility] How many standard dr inks containing alcohol do you have on a typical day? 1 or 2 [facility] How often do you hav e 6 or more drinks on 1 occasion? Never [facility] How hard is it for y ou to pay for the very basics like food, housing, medical care, and heating Not hard at all [facility] Do you feel stress - tense, restless, nervous, or anxious, or unable to sleep at night because your mind is troubled all the time - these days [OSQ] Not at all [facility] (I/We) worried corey er (my/our) food would run out before (I/we) got money to buy more. Never true [facility] In the past 12 month s, was there a time when you were not able to pay the mortgage or rent on time? No [facility] Start: 04-22-2020 End: 05-22-2020 Exposure to SARS-CoV-2 (event) Not sure [facility] Functional Status Date Assessment Result Facility 09-30-2014 Are you deaf, or do you have serious difficulty hearing No 09/30/2014 12:46 PM EDT Jose Roberto Kim Huang [facility] 09-30-2014 Are you blind, or do you have serious difficulty seeing, even when wearing glasses No 09/30/2014 12:46 PM EDT Cid SalKim [facility] 09-30-2014 Do you have serious difficulty walking or climbing stairs No 09/30/2014 12:46 PM EDT Kim Cid Ma [facility] 09-30-2014 Do you have difficul ty dressing or bathing No 09/30/2014 12:46 PM EDT Kim Cid Ma [facility] 09-30-2014 Because of a physica l, mental, or emotional condition, do you have difficulty doing errands alone such as visiting a physician's office or shopping No 09/30/2014 12:46 PM EDT Cid SalKim [facility] Mental Status Date Assessment Result Facility 09-30-2014 Because of a physica l, mental, or emotional condition, do you have serious difficulty concentrating, remembering, or making decisions No 09/30/2014 12:46 PM EDT Jose Roberto HuangKim [facility] Progress note 11-01-2024 Note Date & Type Note Facility 11-01-2024 Note HNO ID: [id number] Author: JANE GALLEGOS MA Service: ? Author Type: [facility] Type: Progress Notes Filed: 11/01/2024 14:29 Note Text: PT ASSESSMENT - CASTING ROOM [place] presents for Application of brace. Applied Medium Rhizo Forte brace to the right hand and size 11 Oval 8 ring splint to the right middle finger. Patient has been instructed in Care and proper application of brace. Jane Gallegos MA [facility] History of Present illness Narrative 11-01-2024 Jane Gallegos MA - 11/01/2024 1:57 PM EDTPLedy walden MD - 11/01/2024 1:06 PM EDT Note Date & Type Note Facility 11-01-2024 History of Presen t illness Narrative PT ASSESSMENT - CASTING ROOM Madalyn presents for Application of brace. Applied Medium Rhizo Forte brace to the right hand and size 11 Oval 8 ring splint to the right middle finger. Patient has been instructed in Care and proper application of brace. Jane Gallegos MA Ledy James MD Department of Orthopaedics [facility] [address] [place] [address] Dept: [phone] Dept November 01, 2024 CHIEF COMPLAINT: New and Pain of the Right Hand HPI Madalyn is a 64-year-old female presenting with right middle finger triggering at night. Madalyn reports that her right middle finger triggers every night, but never during the day. She describes the finger as ratcheting and notes a tight sensation in the joint, though it is not painful. She is able to manually extend the finger when it triggers. She denies any previous episodes of similar symptoms. She also reports stiffness in her hands at night, which she attributes to frequent tossing and turning during sleep. She notes that her hands often feel stiff upon waking, and she has difficulty opening things and gripping, particularly in the right thumb. She experiences pain in the right thumb when gripping, which she attributes to arthritis. She also reports swelling and tenderness in the right ring finger, which she believes is related to arthritis. ASSESSMENT: M65.331 Trigger middle finger of right hand (primary encounter diagnosis) M18.11 Primary osteoarthritis of first carpometacarpal joint of right hand 1. Trigger middle finger of right hand (M65.331) Experiencing nocturnal triggering of the right middle finger, with palpable tightness at the A1 heather. No significant tenderness or daytime locking observed on examination. - Educated patient on the pathophysiology of trigger finger, including the role of tendon swelling and the A1 heather. - Provided a ring splint to be worn at night to prevent flexion and reduce the risk of triggering. - Discussed the potential for corticosteroid injection if symptoms persist or worsen. - Advised monitoring symptoms and follow-up if no improvement is noted with splint use. 2. Primary osteoarthritis of first carpometacarpal joint of right hand (M18.11) Exhibiting signs of osteoarthritis in the first carpometacarpal joint, with associated pain and difficulty in gripping and pinching activities. - Provided a thumb splint to offload the joint during activities that exacerbate symptoms. - Recommended [id number] Voltaren gel for topical application to the affected joint to reduce inflammation and pain. - Discussed the possibility of corticosteroid injections or surgical intervention if conservative measures fail to provide relief. Will continue to monitor patient for Trigger middle finger of right hand (primary encounter diagnosis) Primary osteoarthritis of first carpometacarpal joint of right hand, patient to schedule visit as per follow up discussed. OBJECTIVE: Ms. Madalyn Castaneda is a pleasant 64 year old in no apparent distress. Gen:LMP 02/23/2012 nl development, non obese, no deformities ENT: Normocephalic, normal hearing, moist mucosa CV: Pulses:Radial= 2+ and symmetric, capillary refill < 2 secs, no peripheral edema/varicosities Skin: no rash, bruising or lesions. Good turgor. Psych: cooperative and appropriate, alert and oriented x 3, good mood and affect. Musculoskeletal: - Musculoskeletal: - Right Middle Finger: Palpable crepitus over the A1 heather, no significant tenderness noted. No locking. Mild swelling and minor tenderness at the Thumb, basal joint. Arthritic changes at DIP of the index,and stiffness at the ring finger, PIP joint. 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 Young [facility] - PAST MEDICAL HISTORY OF 12/2000 SMALL UTERINE FIBROID Rupture of chordae tendineae (HCC) 11/14/2016 small tear in chordae tendinae of the mitral valve seen 10/2002 and again 10/13/14 w/o change or symptoms Tear film insufficiency, unspecified Past Surgical History: PAST SURGICAL HISTORY Procedure Laterality Date COLONOSCOPY FLX DX W/COLLJ SPEC WHEN PFRMD 05/01/10 COLONOSCOPY FLX DX W/COLLJ SPEC WHEN PFRMD 04/14/2020 Colonoscopy DILATION & CURETTAGE DX&/THER NONOBSTETRIC 12/31/2011 LAP HYSTERECTOMY FOR UTERUS 250G OR LESS 05/27/2012 fibroid uterus, menorrhagia LIG/TRNSXJ FLP TUBE ABDL/VAG APPR UNI/BI 1996 PAST SURGICAL HISTORY OF REMOVAL OF A THYROGLOSSAL DUCT CYST SKIN BIOPSY HX VAGINAL HYSTERECTOMY Family History: FAMILY HISTORY Problem Relation Age of Onset Lung Cancer Mother stomach Cancer Father CANCER OF THE BLADDER Stroke Father Coronary Artery Disease Father triple bypass Prostate Cancer Brother Cancer Paternal Grandmother Cancer Paternal Grandfather Breast Cancer Paternal Aunt Cancer Paternal Aunt cancer of breast Cancer Paternal Aunt Cancer Paternal Aunt Cancer Paternal Aunt Cancer Paternal Uncle Cancer Paternal Uncle Social History: Social History Tobacco Use Smoking status: Never Smokeless tobacco: Never Vaping Use Vaping status: Never Used Substance Use Topics Alcohol use: Yes Comment: OCCASIONALLY Drug use: No Medications: Current Outpatient Medications Medication Sig levothyroxine (LEVOXYL) 75 mcg tablet Take 1 tablet by mouth once daily. Take on empty stomach. For thyroid. estradiol (ESTRACE) 0.01 % (0.1 mg/gram) vaginal cream Use a pea sized amount to the vaginal area 3 times a week. No current facility-administered medications for this visit. Allergies: Imaging Dye [Other] and Neosporin [[id number]-[id number]] ROS: General (negative for fatigue, malaise, weight loss/gain) HEENT (negative for headache, earache, recent vision changes, sinus pain, sore throat) Respiratory (no recent shortness of breath, hemoptysis) CV (negative for chest tightness, palpitations) Musculoskeletal (see HPI) Psych (no depression, anxiety) Constitutional: (+) sleep disturbance Musculoskeletal: (+) right middle finger locking at night, (+) hand stiffness at night, (+) difficulty gripping, (+) ring finger swelling, (+) pain with impact to ring finger Recording using Prosetta software for draft documentation of the visit was discussed with the patient/authorized outbound telemarketing representative; all questions welcomed and answered. Patient/authorized outbound telemarketing representative agreed to proceed Ledy James MD ' documented in this encounter [facility] Progress note 11-01-2024 Note Date & Type Note Facility 11-01-2024 Note HNO ID: [id number] Author: LEDY JAMES MD Service: ? Author Type: Physician Type: Progress Notes Filed: 11/01/2024 14:29 Note Text: Ledy James MD Department of Orthopaedics Orthopaedics [address] [place] [facility] [address] Dept: [phone] Dept November 01, 2024 CHIEF COMPLAINT: New and Pain of the Right Hand HPI Madalyn is a 64-year-old female presenting with right middle finger triggering at night. Madalyn reports that her right middle finger triggers every night, but never during the day. She describes the finger as ratcheting and notes a tight sensation in the joint, though it is not painful. She is able to manually extend the finger when it triggers. She denies any previous episodes of similar symptoms. She also reports stiffness in her hands at night, which she attributes to frequent tossing and turning during sleep. She notes that her hands often feel stiff upon waking, and she has difficulty opening things and gripping, particularly in the right thumb. She experiences pain in the right thumb when gripping, which she attributes to arthritis. She also reports swelling and tenderness in the right ring finger, which she believes is related to arthritis. ASSESSMENT: M65.331 Trigger middle finger of right hand (primary encounter diagnosis) M18.11 Primary osteoarthritis of first carpometacarpal joint of right hand 1. Trigger middle finger of right hand (M65.331) Experiencing nocturnal triggering of the right middle finger, with palpable tightness at the A1 heather. No significant tenderness or daytime locking observed on examination. - Educated patient on the pathophysiology of trigger finger, including the role of tendon swelling and the A1 heather. - Provided a ring splint to be worn at night to prevent flexion and reduce the risk of triggering. - Discussed the potential for corticosteroid injection if symptoms persist or worsen. - Advised monitoring symptoms and follow-up if no improvement is noted with splint use. 2. Primary osteoarthritis of first carpometacarpal joint of right hand (M18.11) Exhibiting signs of osteoarthritis in the first carpometacarpal joint, with associated pain and difficulty in gripping and pinching activities. - Provided a thumb splint to offload the joint during activities that exacerbate symptoms. - Recommended [id number] Voltaren gel for topical application to the affected joint to reduce inflammation and pain. - Discussed the possibility of corticosteroid injections or surgical intervention if conservative measures fail to provide relief. Will continue to monitor patient for Trigger middle finger of right hand (primary encounter diagnosis) Primary osteoarthritis of first carpometacarpal joint of right hand, patient to schedule visit as per follow up discussed. OBJECTIVE: Ms. Madalyn Castaneda is a pleasant 64 year old in no apparent distress. Gen:LMP 02/23/2012 nl development, non obese, no deformities ENT: Normocephalic, normal hearing, moist mucosa CV: Pulses:Radial= 2+ and symmetric, capillary refill < 2 secs, no peripheral edema/varicosities Skin: no rash, bruising or lesions. Good turgor. Psych: cooperative and appropriate, alert and oriented x 3, good mood and affect. Musculoskeletal: - Musculoskeletal: - Right Middle Finger: Palpable crepitus over the A1 heather, no significant tenderness noted. No locking. Mild swelling and minor tenderness at the Thumb, basal joint. Arthritic changes at DIP of the index,and stiffness at the ring finger, PIP joint. 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 Young [facility] - PAST MEDICAL HISTORY OF 12/2000 SMALL UTERINE FIBROID Rupture of chordae tendineae (HCC) 11/14/2016 small tear in chordae tendinae of the mitral valve seen 10/2002 and again 10/13/14 w/o change or symptoms Tear film insufficiency, unspecified Past Surgical History: PAST SURGICAL HISTORY Procedure Laterality Date COLONOSCOPY FLX DX W/COLLJ SPEC WHEN PFRMD 05/01/10 COLONOSCOPY FLX DX W/COLLJ SPEC WHEN PFRMD 04/14/2020 Colonoscopy DILATION AND CURETTAGE DXAND/THER NONOBSTETRIC 12/31/2011 LAP HYSTERECTOMY FOR UTERUS 250G OR LESS 05/27/2012 fibroid uterus, menorrhagia LIG/TRNSXJ FLP TUBE ABDL/VAG APPR UNI/BI 1996 PAST SURGICAL HISTORY OF REMOVAL OF A THYROGLOSSAL DUCT CYST SKIN BIOPSY HX VAGINAL HYSTERECTOMY Family History: FAMILY HISTORY Problem Relation Age of Onset Lung Cancer Mother stomach Cancer Father CANCER OF (more content not included)... [facility] History of Present illness Narrative 05-22-2020 Rainey, Tommy Olivera (Rt) - 05/22/2020 4:20 PM EST Note Date & Type Note Facility 05-22-2020 History of Presen t illness Narrative Radiology Service Progress Note PATIENT NAME: Madalyn Castaneda DATE OF SERVICE: May 22, 2020 TIME: 4:25 PM PATIENT IDENTITY VERIFICATION COMPLETED USING TWO (2) IDENTIFIERS: Name and Date of confirmed by patient verbally. FALL SCREENING: Has the patient had 2 falls in the last year or 1 fall with injury or currently using an Ambulatory Assistive Device (Walker, Cane, Wheelchair, Crutches, etc.)? No PATIENT GENDER DATA: Female. status: : No status: NO. PATIENT RELEVANT IMPLANT DATA REVIEWED: Yes RADIOLOGY DEPARTMENT: General X-ray: Exam(s) Completed: Spine X-Ray(s): Lumbar AP / LAT / L5-S1 PERIPHERAL IV DATA: Not applicable SIGNED BY: RT Mariza May 22, 2020 4:25 PM documented in this encounter [facility] History of Past illness Narrative 02-26-2013 Note Date & Type Note Facility 02-26-2013 History of Past i llness Narrative Problem Noted Date Resolved Date Hemangioma of skin 02/26/2013 09/26/2014 Dermatofibroma of right lower leg 11/24/2012 09/26/2014 Excessive or frequent menstruation 02/14/2012 09/26/2014 Iron deficiency anemia 02/28/2010 06/201 7 Dermatofibroma of R Lower Ex tremity: R Leg distal thigh at superior lateral knee area 07/11/2009 09/26/2014 Other atopic dermatitis and related conditions 0 03/11/2008 11/24/2012 Other acne 03/11/2008 11/24/2012 Irritated//Inflamed Seborrheic Keratosis 007 09/26/2014 Viral warts, unspecified 03/23/2007 013 TELANG///HEREDIT HEMORR TELANGIEC 03/23/2007 05/20/2012 Benign neoplasm of skin of trunk, except scrotum 09/18/2006 11/24/2012 Benign neoplasm of skin of lower limb, including hip 09/18/2006 11/24/2012 JASON ANGIOMA///NEVUS, NON-NEOPLASTIC 7 11/24/2012 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 09/26/2014 ACTINIC DAMAGE//CHR SOLAR SKIN DAMAGE NOS 200511/24/2012 SEBORRHEIC KERATOSES NOS 02/06/2006 013 SOLAR LENTIGENES///DYSCHROMIA OTHER 02/06/2006 11/24/2012 MIILIA//EPIDERMAL CYST//SEBACEOUS CYST 6 11/24/2012 documented as of this encounter (statuses as of 03/25/2022) [facility] Evaluation note Note Date & Type Note Facility Evaluation note No assessment information availa [facility] Work Phone: Evaluation note Note Date & Type Note Facility Evaluation note Diagnosis Encounter for screening mammogram for breast cancer documented in this encounter [facility] Evaluation note Note Date & Type Note Facility Evaluation note Diagnosis Chronic midline low back pain without sciatica documented in this encounter [facility] Evaluation note Note Date & Type Note Facility Evaluation note Diagnosis Trigger middle finger of right hand- Primary Trigger finger (acquired) Primary osteoarthritis of first carpometacarpal joint of right hand Primary localized osteoarthrosis, hand documented in this encounter [facility] Reason for referral (narrative) Diagnostic Procedure Only (Routine) - Pending Review Note Date & Type Note Facility Reason for referral (narrati ve) Specialty Diagnoses / Procedures Referred By Camila varner Referred To Contact [facility] Diagnoses Encounter for screening mammogram for breast cancer Procedures JASEN SCREENING W THO SCREENING DIGITAL BREAST TOMOSYNTHESIS BI SCREENING MAMMOGRAPHY BI 2-VIEW BREAST INC CAD Luis Daniel Garcia MD [address] [place] [address] [facility] [address] [place] [address] Referral ID Status Reason Start Date Expiration Date Visits Requested Visits Authorized [id number] Pending Review Auto-Generat ed Referral 03/20/2022 04/19/2023 1 1 [facility] Chief Complaint and Reason for Visit Chief Complaint SCREENING Family History No Family History Records Found Relationship Condition Age at Onset Recorded Date/T christopher mother Malignant neoplasm Unknown Disorder of thyroid Unknown father Malignant neoplasm Unknown Cerebrovascular accident (CVA) Unknown Summary Purpose Advance Directives No Advanced Directives Records FoundNo Advanced Directives Records Found Additional Source Comments Goals (unrecognized section and content) Goals may be documented in a n alternate sectionGoals may be documented in an alternate section Source Comments (unrecognize d section and content) In the event this informatio n is protected by the Federal Confidentiality of Alcohol and Drug Abuse Patient Records regulations: The Federal rules restrict any use of the information to criminally investigate or prosecute any alcohol or drug abuse patient.[facility] the event this information is protected by the Federal Confidentiality of Alcohol and Drug Abuse Patient Records regulations: The Federal rules restrict any use of the information to criminally investigate or prosecute any alcohol or drug abuse patient.[facility] the event this information is protected by the Federal Confidentiality of Alcohol and Drug Abuse Patient Records regulations: The Federal rules restrict any use of the information to criminally investigate or prosecute any alcohol or drug abuse patient.[facility] Care Teams (unrecognized sec tion and content) Commonwealth Attorney Relationship Specialty Start Date End Date Luis Daniel Garcia MD [address] [place] [address] PCP - General Family Medicine 11/16/20 Team Status: Active Member Role Status Dates Dr. Mateusz Mesa III, MD Family Provider Active Dr. Orly Siddiqui MD Primary Care Provider Active Team Status: Inactive Member Role Status Dates Dr. Orly Siddiqui MD Primary Care Pro vider, Attending Provider, Referring Provider Active Commonwealth Attorney Relationship Specialty Start Date End Date Mateusz Mesa III, MD PCP - General 05/02/09 11/15/20 Commonwealth Attorney Relationship Specialty Start Date End Date Orly Siddiqui MD [address] [facility] [address] [place], [place] [address] PCP - General Internal Medicine 09/23/22 Reason for Visit (unrecogniz ed section and content) Specialty Diagnoses / Procedures Referred By Contac t Referred To Contact Radiology / [facility] Diagnoses lumbar Procedures XR GENERAL 8 Mateusz Mesa III, MD NO FORWARDING ADDRESS [facility] [address] [place] [address] Referral ID Status Reason Start Date Expiration Date Visits Re quested Visits Authorized [id number] Closed 05/22/2020 06/15/2020 1 1 Reason Comments New Pain INFORMATION SOURCE (unrecogn ized section and content) DATE CREATED AUTHOR 11/02/2024 [facility] DATE CREATED AUTHOR AUTHOR'S ORGANIZ ATION 12/02/2024 [facility] FOR RECORDS PERTAINING TO PATIENTS WHO ARE OR HAVE BEEN ENROLLED IN A CHEMICAL DEPENDENCY/SUBSTANCEABUSE PROGRAM, SOME INFORMATION MAY BE OMITTED. This clinical summary was aggregated from multiple sources. Caution should be exercised in using it in the provision of clinical care. This summary normalizes information from multiple sources, and as a consequence, information in this document may materially change the coding, format and clinical context of patient data. In addition, data may be omitted in some cases. CLINICAL DECISIONS SHOULD BE BASED ON THE PRIMARY CLINICAL RECORDS. [employer] provides no warranty or guarantee of the accuracy or completeness of information in this document.
[2025-02-24 06:03] LABS: D-Dimer Quantitative (DVT/PE) 1.16 FEU/ug/m (0.27-0.49)
--- NOTE | 2025-02-24 06:10 | CT_ITS ---
PROCEDURE: CTA CHEST W/WO CONTRAST 02/24/2025 REASON FOR EXAM: CHEST PAIN WITH ELEVATED D-DIMER TECHNIQUE: Procedure Code: [id number] Modality: CT Procedure: CTA CHEST W/WO CONTRAST Multiplanar Sagittal and Coronal images were obtained. 3D post processing was performed CONTRAST: Isovue 370 VOLUME: 91 mL One or more dose reduction techniques were used (e.g., Automated exposure control, adjustment of the mA and/or kV according to patient size, use of iterative reconstruction technique). RADIATION DOSE SUMMARY: CTDlvol: 12 mGy DLP: 208 mGycm COMPARISON: Chest x-rays February 24, 2025, November 24, 2023 # of known CTs in the past 12 months: 0 # of known Cardiac Nuclear Medicine Studies in the past 12 months: 0 FINDINGS: Thoracic Aorta: No evidence of aortic aneurysm or dissection. Minimal atherosclerotic plaque at the arch. Heart: Normal size. No pericardial effusion. No coronary artery atherosclerotic change seen. Pulmonary Vessels: The timing and quality of the contrast bolus is diagnostic. There is no evidence of acute or chronic pulmonary embolus. Hardware: None Lymph nodes: None appear enlarged. Lungs and Airways: Subsegmental atelectasis at the left lung base. Pleura: No pleural effusion or pneumothorax. Upper Abdomen: Normal. Bones: Degenerative changes of the thoracic spine. CT/CTA Chest W/WO Contrast IMPRESSION: 1. No evidence of acute or chronic pulmonary embolus. 2. No acute aortic syndrome. Reading Location: [id number]
[2025-02-24] MEDS: 0.9% Normal Saline (1000mL) 1,000 ML 999 ML IV (06:20)
--- NOTE | 2025-02-24 06:38 | EDS_ITS ---
HPI History of Present Illness Chief Complaint: Chest Pain Informant: patient and spouse/S.O. Narrative Narrative: Patient is a 59 female who reports a past medical history of hypothyroidism. She states she went to bed feeling normal and then awoke with a chest p ressure/discomfort across the upper chest radiating between both shoulders. She states with this she experienced nausea with 1 bout of vomiting and felt short of breath. She states that the pain then began to travel down the chest towards the upper abdomen. She states she took Rolaids and 2 baby aspirin but states that she then had her bout of vomiting and is unsure if she kept any of that down. She states symptoms lasted for approximately 45 minutes and have since resolved. She denies any recent travel surgery or history of DVT/PE. With concern that the experience at home could be cardiac in nature she presents for evaluation [facility] Medical History Acute cough Thyroglossal cyst Pericardial cyst Thyroid disease Skin cancer Home Medications ?Medication ?Instructions ?Recorded ?Last Taken ?Type levothyroxine 75 mcg tablet 75 mcg PO DAILY #90 tabs 0 08/25/24 Unknown Rx Allergy/AdvReac Type Severity Reaction Status Date / Time bacitracin (From Neosporin Allergy Mild rash Verified 02/24/25 05:02 ([id number])) Iodinated Contrast Media (CT) Allergy Mild Hives Verified 02/24/25 05:02 neomycin (From Neosporin Allergy Mild rash Verified 02/24/25 05:02 ([id number])) polymyxin B (From Neosporin Allergy Mild rash Verified 02/24/25 05:02 ([id number])) Family History Mother Cancer Thyroid disorder Father Cancer CVA (cerebral vascular accident) Surgical History History of hysterectomy Social History (Updated 03/19/24 @ 08:03 by Skylar Byrd) household members: spouse Smoking Status: Never smoker alcohol intake: current alcohol intake frequency: holidays/special occasions only substance use type: does not use what type of physical activity do you participate in: walking frequency: 3-4 times per week seatbelt use: always do you feel safe at home: Yes additional social history: - Wander RAMIREZ ROS ED Constitutional Constitutional ED: Denies chills or fever(s) Eyes Eyes: Denies change in vision ENT ENT ED: Denies sore throat Cardiovascular Cardiovascular: Reports chest pain; Denies palpitations or racing heartbeat Respiratory/Chest Respiratory/Chest: Reports dyspnea; Denies cough Gastrointestinal Gastrointestinal: Reports abdominal pain, nausea and vomiting; Denies diarrhea Genitourinary Genitourinary ED: Denies dysuria Musculoskeletal Musculoskeletal: Denies back pain or myalgias Integumentary Denies rash Neurologic Neurologic: Denies headache(s) Hematologic/Lymphatic Hematologic/Lymphatic: Denies easy bleeding or easy bruising EXAM Physical Exam Const Vital Signs: 02/24/25 04:57 02/24/25 05:07 02/24/25 05:15 Temperature 99 F Temperature Source Oral Pulse Rate 91 80 84 Respiratory Rate 16 12 17 Blood Pressure 132/75 H Blood Pressure Mean 94 Pulse Ox 100 100 100 Oxygen Delivery Method Room Air 02/24/25 05:30 02/24/25 05:45 02/24/25 06:00 Temperature Temperature Source Pulse Rate 83 89 83 Respiratory Rate 10 L 20 H 19 H Blood Pressure Blood Pressure Mean Pulse Ox 99 98 99 Oxygen Delivery Method Positive well nourished and well developed General Appearance ED: well developed; Negative for pallor HEENT HEENT Narrative: Normocephalic atraumatic Eyes PERRL and EOMs intact bilaterally General Eye ED: Negative for scleral icterus Neck supple and no JVD Chest Wall palpation of chest normal Chest Narrative: No reproducible pain with palpation no bony deformity or subcutaneous emphysema noted Resp normal respiratory effort and clear to auscultation bilaterally Resp Narrative: No nasal flaring retractions tachypnea or accessory muscle use Cardio regular rate and regular rhythm Rate: other Other Details: Heart is regular rate and rhythm without murmurs rubs or gallop Radial and carotid pulses are equal and symmetric GI normal to inspection, nondistended, normoactive bowel sounds, non-tender, non- distended and no masses GI Narrative: No voluntary guarding or rigidity or pulsatile mass Negative Weber sign Auscultation: normoactive bowel sounds Palpation: soft Extremity normal to inspection Extremity Narrative: No asymmetric edema no pitting edema negative Homans' sign bilaterally Neuro oriented x3, CN's II-XII intact bilaterally and no sensory deficits noted Sensorium / Orientation: alert Motor Exam: strength 5/5 throughout Psych mental status grossly normal Skin no rashes or lesions noted and no wounds General Skin Exam: Negative for jaundice or pallor MDM MDM MDM Narrative Medical decision making narrative: Patient arrived to the ER mildly hypertensive but otherwise with stable vitals. She is low risk for acute coronary syndrome with essentially only risk factor being postmenopausal female. As she denies a first-degree family history of heart disease/heart attack smoking/vaping hypertension hyperlipidemia or diabetes. She is also low risk for PE as there is been no recent travel surgery previous history of this or hormone use. However as she was awoken from sleep with chest pressure/discomfort that caused a bout of nausea vomiting and shortness of breath there is potential this is acute coronary syndrome. Secondary to this an EKG was obtained. A basic cardiac workup was ordered as well as a D-dimer. The patient's initial troponin is less than 6. With her report that she had persistent chest discomfort 45 minutes to 1 hour prior to the symptoms resolving I would expect the initial troponin to be elevated. The fact that it is less than 6 would go against ACS. Still patient will need a 2- hour delta to ensure that there is no elevation. She is low risk for PE and dissection but as she is low risk for ACS and had sudden onset chest discomfort I added D-dimer. This is slightly elevated at 1.16 and therefore CTA of the chest will be obtained. However her liver enzymes are slightly elevated and when compared to roughly 1 year ago the AST and ALT were normal and now they are up and therefore there is potential that the symptoms could be atypical biliary. Therefore a gallbladder ultrasound will be added. Chest x-ray confirm no obvious lung pathology such as pneumonia or pneumothorax. The patient also had spontaneous resolution of symptoms upon arrival to the ER. Therefore at this time the patient is low risk for ACS and her initial troponin is normal but the delta will be obtained to follow the algorithm and ensure this was not a non- STEMI or potential vasospasm. Also CTA will be obtained because of the elevated D-dimer to rule out PE or dissection and gallbladder ultrasound be ordered to check for potential cholelithiasis or sludge or acute cholecystitis. As the patient is low risk for ACS if the delta troponin and CTA are negative and she remains pain-free I feel she will be safe for discharge with outpatient follow up. As the results of her gallbladder ultrasound and delta troponin and CTA are still pending she will be signed out to the day physician Dr. Mcintosh History & Record Review Discussion w/independent historian: Patient and Significant other Lab Data Attestation: I reviewed the patient's lab results. Labs: Laboratory Results - last 24 hr 02/24/25 05:02 WBC 5.1 RBC 4.38 Hgb 13.4 Hct 39.2 MCV 89.5 MCH 30.6 MCHC 34.2 RDW Std Deviation 42.5 RDW Coeff of Prosper 12.8 Plt Count 221 MPV 10.9 Immature Gran % (Auto) 0.600 Neut % (Auto) 78.1 H Lymph % (Auto) 13.4 L [place] % (Auto) 6.5 Eos % (Auto) 0.6 Baso % (Auto) 0.8 Absolute Neuts (auto) 4.0 Absolute Lymphs (auto) 0.68 L Nucleated RBC % 0 D-Dimer Quant (PE/DVT) 1.16 H* Sodium 139 Potassium 4.3 Chloride 103 Carbon Dioxide 24.6 Anion Gap 12 BUN 11 Creatinine 0.67 L Estim Creat Clear Calc 65.63 Est GFR (MDRD) Non-Af 97 BUN/Creatinine Ratio 16.0 Glucose 120 H Calcium 9.6 Magnesium 2.1 Total Bilirubin 0.46 Direct Bilirubin 0.21 AST 115 H ALT 86 H Alkaline Phosphatase 129 H Troponin T High Sens < 6 Total Protein 7.2 Albumin 4.2 Globulin 2.9 Lipase 40 TSH 2.260 Radiography Diagnostic Testing: Clinical Impression(s) from Imaging Studies Chest X-Ray 02/24/25 05:35 IMPRESSION: No acute abnormality Reading Location: [facility] Chest x-ray as interpreted by the emergency medicine physician reveals no acute infiltrate pneumothorax or pleural effusion Discharge Plan Triage Chief Complaint: Chest Pain ED Provider: Alexander Luis Dx/Rx/DC Orders Clinical Impression: Nonspecific chest pain, Hypothyroidism Prescriptions: No Action levothyroxine 75 mcg tablet 75 mcg PO DAILY Qty: 90 3RF Primary Care Provider: Stacia Poe Referrals: Stacia Poe MD [Primary Care Provider] - Print Language: Hebrew
[2025-02-24 06:39] LABS: AST(SGOT) 115 U/L (<=31); Alanine Aminotransfer ALT/SGPT 86 U/L (<=34); Albumin, Serum 4.2 g/dL (3.4-4.8); Alkaline Phosphatase 129 U/L (35-104); Anion Gap 12 (5-15); BUN 11 mg/dL (4-19); BUN/Creat Ratio 16.0 RATIO (10-20); Bilirubin, Direct 0.21 mg/dL (0.00-0.30); Calcium,Total 9.6 mg/dL (7.6-11.0); Carbon Dioxide 24.6 mmol/L (21.0-32.0); Chloride 103 mmol/L (98-108); Estimated Creatinine Clearance 65.63 ml/min (50-250); Globulin 2.9 g/dL (2.2-4.2); Glucose 120 mg/dL (70-99); Lipase 40 U/L (13-75); Magnesium 2.1 mg/dL (1.5-2.2); Potassium 4.3 mmol/L (3.3-5.1); Troponin T High Sensitivity < 6 ng/L (<=14)
--- NOTE | 2025-02-24 06:42 | US_ITS ---
PROCEDURE: GALLBLADDER 02/24/2025 REASON FOR EXAM: ABD PAIN TECHNIQUE: Procedure Code: USGB Modality: US Procedure: GALLBLADDER COMPARISON: None FINDINGS: Liver: Echotexture of the liver is normal. No mass is seen. Portal vein is patent and hepatopetal. Gallbladder: Negative sonographic Weber's sign. No calculus, wall thickening or pericholecystic fluid. Common bile duct: Normal measuring 5 mm. Pancreas: The pancreatic head, neck and proximal tail appear normal. The distal tail is obscured by bowel gas. Right kidney: Kidney is 9.5 x 5.5 x 5.5 cm. No collecting system dilation, calculus or mass. US/Gallbladder IMPRESSION: No acute abnormality Reading Location: [id number]
[2025-02-24 08:14] LABS: Troponin T High Sens 2 HR < 6 ng/L (<=14)
== END 2025-02-24 08:24 | disposition home or self-care (01) ==
PROVIDERS: Emergency Provider Emergency Medicine; PCP Internal Medicine; Visit Provider Emergency Medicine
DX: R07.9 Chest pain, unspecified (principal); E03.9 Hypothyroidism, unspecified; Z85.828 Personal history of other malignant neoplasm of skin; Z79.890 Hormone replacement therapy; Z90.710 Acquired absence of both cervix and uterus; R74.01 Elevation of levels of liver transaminase levels
CPT/HCPCS: 71046; 71275; 76705; 80048; 80076; 83690; 83735; 84443; 84484; 85025; 85379; 93005; 96360; 99282; Q9967; A4216

== ENCOUNTER → 2025-03-01 | Outpatient (CLI) | payer MEDICARE, OTHER, SELFPAY ==
--- NOTE | 2025-03-01 09:20 | BI_ITS ---
EXAM: SCRN MAMM (CAD)W/THO BILAT DATE: 03/01/2025 CLINICAL HISTORY: F, Age 64 y/o , BREAST CANCER SCREENING Aunt with breast cancer. TECHNIQUE: Procedure Code: [id number] Modality: MG Procedure: SCRN MAMM (CAD)W/THO BILAT COMPARISON: Prior exam(s) dated February 24, 2024.. FINDINGS: TISSUE DENSITY: The breasts are extremely dense, which lowers the sensitivity of mammography. Bilateral Breast Mammographic Findings: No significant masses, calcifications or other abnormalities are identified. Stable small benign-appearing bilateral axillary lymph nodes. No suspicious masses, areas of developing architectural distortion, or suspicious calcifications. There has been no significant interval change. BI/SCRN MAMM (CAD)W/THO BILAT IMPRESSION: Stable bilateral screening mammogram. OVERALL FINAL ASSESSMENT BI-RADS 2: BENIGN RECOMMENDATION: Routine annual follow-up in 1 Year A letter with findings and recommendations will be mailed to the patient. Reading Location: [place] [id number]
--- NOTE | 2025-03-01 09:31 | BD_ITS ---
PROCEDURE: DEXA BONE DENSITY STUDY 03/01/2025 REASON FOR EXAM: OSTEOPOROSIS F, age 64 y/o . Postmenopausal. TECHNIQUE: Procedure Code: BDDBD Modality: DX Procedure: DEXA BONE DENSITY STUDY COMPARISON: None FINDINGS: BMD and T-SCORES Lumbar spine: 0.791 g/cm2, T-score -2.3 Levels: L1 through L4 Left femoral neck: 0.628 g/cm2, T-score -2.0 Femoral neck comparison data not recommended for monitoring change. Left total hip: 0.842 g/cm2, T-score -0.8 Right femoral neck: 0.676 g/cm2, T-score -1.6 Femoral neck comparison data not recommended for monitoring change. Right total hip: 0.877 g/cm2, T-score -0.5 The World Health Organization has defined the following categories based on bone density: Normal bone density: T-score equal to or greater than -1.0 Osteopenia: T-score between -1.0 and -2.5 Osteoporosis: T-score equal to or less than -2.5 FRAX (or Comparable) Fracture Risk Assessment: 10 Year Probability of Fracture: Major Osteoporotic Fracture: 10% Hip Fracture: 1.5% (Note: FRAX is not to be reported in setting of normal range bone density, osteoporosis on DEXA, known history of osteoporosis, prior osteoporotic hip or vertebral fracture, or for any patient undergoing pharmacological treatment for bone loss.) The National Osteoporosis Foundation (NOF) recommends pharmacological treatment for patients with a FRAX 10-year risk of 3% or higher for a hip fracture, or 20% or higher for a major osteoporotic fracture, to prevent osteoporosis and reduce fracture risk. The patient does meet the pharmacological treatment recommendations for prevention of osteoporosis. BD/Dexa Bone Density Study IMPRESSION: OSTEOPENIA. Recommend follow-up as clinically warranted. Reading Location: [place] [id number]
[2025-03-01 10:35] LABS: AST(SGOT) 26 U/L (<=31); Alanine Aminotransfer ALT/SGPT 42 U/L (<=34); Albumin, Serum 4.1 g/dL (3.4-4.8); Alkaline Phosphatase 116 U/L (35-104); Anion Gap 10 (5-15); BUN 11 mg/dL (4-19); BUN/Creat Ratio 18.9 RATIO (10-20); Calcium,Total 9.1 mg/dL (7.6-11.0); Carbon Dioxide 25.1 mmol/L (21.0-32.0); Chloride 103 mmol/L (98-108); Globulin 3.1 g/dL (2.2-4.2); Glucose 90 mg/dL (70-99); Lipase 40 U/L (13-75); Potassium 4.4 mmol/L (3.3-5.1)
== END | disposition home or self-care (01) ==
LOC: OPBD 09:15
PROVIDERS: PCP Internal Medicine; Referring Provider Internal Medicine; Visit Provider Internal Medicine
DX: Z12.31 Encounter for screening mammogram for malignant neoplasm of breast (principal); M81.0 Age-related osteoporosis without current pathological fracture
CPT/HCPCS: 36415; 77063; 77067; 77080; 80053; 83690

== ENCOUNTER → 2025-03-22 | Outpatient (CLI) | payer MEDICARE, OTHER, SELFPAY ==
--- NOTE | 2025-03-22 10:04 | ECHOD_ITS ---
Reason For Study Reason For Study: CHEST PAIN Procedure This was a 2D Doppler, Color Flow transthoracic echocardiogram. Exam performed in department. Left Ventricle Normal LV size. Left ventricular systolic function is normal. The left ventricular ejection fraction is 60 %. No regional wall motion abnormalities noted. Right Ventricle Normal RV size. Normal systolic function. Atria Normal left atrium. Normal right atrium. Mitral Valve Normal mitral valve. Mild (1+) mitral valve insufficiency. Tricuspid Valve Normal tricuspid valve. Mild (1+) tricuspid valve insufficiency. Aortic Valve Normal aortic valve. Trisinus/trileaflet aortic valve. Pulmonic Valve Normal pulmonic valve. Great Vessels Normal aortic root. The pulmonary artery is normal size. Inferior vena cava collapse with respiration. Pericardium/Pleural No pericardial effusion. MMode/2D Measurements & Calculations LVIDd: 4.9 cm IVSd: 0.72 cm LVOT diam: 2.0 cm LVIDs: 3.0 cm LVPWd: 0.77 cm LVOT area: 3.0 cm2 RVDd: 3.2 cm FS: 38.0 % asc Aorta Diam: 3.0 cm LAV(MOD-bp): 29.8 ml LVAd ap4: 18.0 cm2 LAV(MOD-bp) Indexed: 17.1 ml/m2 LVLd ap4: 6.6 cm LAV(MOD-sp2): 21.4 ml EDV(MOD-sp4): 41.7 ml LAV(MOD-sp4): 38.1 ml EDV(sp4-el): 42.1 ml LVAs ap4: 10.2 cm2 LVLs ap4: 6.0 cm ESV(MOD-sp4): 15.4 ml ESV(sp4-el): 14.7 ml EF(MOD-sp4): 63.1 % EF(sp4-el): 65.0 % LVAd ap2: 19.3 cm2 SV(MOD-sp4): 26.3 ml SV(MOD-sp2): 26.5 ml LVLd ap2: 6.9 cm SI(MOD-sp4): 15.1 ml/m2 SI(MOD-sp2): 15.2 ml/m2 EDV(MOD-sp2): 46.2 ml EDV(sp2-el): 46.1 ml LVAs ap2: 11.9 cm2 LVLs ap2: 5.9 cm ESV(MOD-sp2): 19.8 ml ESV(sp2-el): 20.3 ml EF(MOD-sp2): 57.3 % SV(sp4-el): 27.4 ml Ao sinus diam: 2.[address] Junction: 2.5 cm LA dimension(2D): 3.9 cm LA A4 area: 15.2 cm2 RA A4 area: 13.5 cm2 TAPSE: 1.9 cm Time Measurements MV dec time: 0.23 sec Doppler Measurements & Calculations MV E max steve: 56.1 cm/sec Lat Peak E' Steve: 7.6 cm/sec Med Peak E' Steve: 7.9 cm/sec MV A max steve: 60.8 cm/sec E/E' lat: 7.4 E/E' med: 7.1 MV E/A: 0.92 MV dec slope: 247.8 cm/sec2 Ao V2 max: 140.2 cm/sec LV V1 max: 96.7 cm/sec Ao max P.9 mmHg LV V1 max P.7 mmHg Ao V2 mean: 98.4 cm/sec LV V1 mean P.5 mmHg Ao mean P.3 mmHg LV V1 mean: 77.4 cm/sec Ao V2 VTI: 32.9 cm LV V1 VTI: 21.2 cm AV (velocity ratio): 0.65 CALVIN(I,D): 1.9 cm2 CALVIN(V,D): 2.1 cm2 SV(LVOT): 63.5 ml PA V2 max: 101.6 cm/sec TR max steve: 220.6 cm/sec TR max P.7 mmHg ECHO/Echo Complete Interpretation Summary Mild (1+) mitral valve insufficiency. Left ventricular systolic function is normal. Normal LV size. The left ventricular ejection fraction is 60 %. Ordering Physician: Stacia Poe Referring Physician: Stacia Poe Performed By: Renetta Davies RDCS
== END | disposition home or self-care (01) ==
PROVIDERS: PCP Internal Medicine; Referring Provider Internal Medicine; Visit Provider Internal Medicine
DX: I51.1 Rupture of chordae tendineae, not elsewhere classified (principal)
CPT/HCPCS: 93306

== ENCOUNTER → 2025-03-25 | Outpatient (CLI) | payer MEDICARE, OTHER, SELFPAY ==
--- NOTE | 2025-03-25 13:39 | STE_ITS ---
Reason For Study Reason For Study: Chest Pain, abnormal EKG Stress Results Protocol: Stress Echocardiogram Mason Protocol Maximum Predicted HR: 155 bpm Target HR: 132 bpm % Maximum Predicted HR: 109 % DurationHeart Rate Stage (mm:ss) (bpm) BP Comment Baseline 67 152/89Patient denies chest pain. Stage 1 3:00 103 142/88Patient denies chest pain. Stage 2 3:00 121 168/90Patient denies chest pain. Stage 3 3:00 142 170/98Mild shortness of breath. Denies chest pain. Stage 4 0:30 169 / Moderate shortness of breath. Denies chest pain. Recovery 82 124/80Patient denies chest pain or dyspnea. Stress Duration: 9:30 mm:ss Maximum Stress HR: 169 bpm Baseline Echocardiogram Findings Stress Echo Wall motion Data Resting WM Intermediate WM Stress WM Resting Wall Motion Wall Motion Stress Normal resting wall motion. Estimated All wall segments hyperdynamic except LVEF 55%. the inferior wall which is mildly hypokinetic postexercise. Overall postexercise LVEF 65%. EKG Data Baseline ECG sinus rhythm with nonspecific T wave changes in anterior precordial leads. ST depressions in inferior leads in recovery suggestive of ischemia. ECHO/Stress Test Echo w/o Contrast Interpretation Summary Patient exercised on the treadmill for 9 minutes and 30 seconds, achieving 109% of the maximum predicted heart rate. No angina reported. No significant arrhythmias noted. Inferior ST depressions in recovery, suggestive of ischemia. Mild hypokinesis of the inferior wall on poststress echo images. Positive exercise stress echo with possible ischemia of the inferior wall. Ordering Physician: Stacia Poe Referring Physician: Stacia Poe Performed By: Renetta Davies RDCS
== END | disposition home or self-care (01) ==
LOC: CVS 13:39
PROVIDERS: PCP Internal Medicine; Referring Provider Internal Medicine; Visit Provider Internal Medicine
DX: R94.31 Abnormal electrocardiogram [ECG] [EKG] (principal); R07.9 Chest pain, unspecified
CPT/HCPCS: 93017; 93350

== ENCOUNTER 2025-04-04 08:33 | Day surgery (SDC) | payer MEDICARE, OTHER, SELFPAY ==
[2025-04-04 08:44] VITALS: BMI 23.7
--- NOTE | 2025-04-04 09:57 | CL.D_ITS ---
Patient Name: MADALYN CASTANEDA Study Date: 04/04/2025 Performing: Steve Jacinto MD Ht: 66 inches 167.64 cm : 1960 Wt: 147 lbs 66.68 kg Age: 64 Gender: female BSA: 1.75 PROCEDURE(S) PERFORMED [id number])LHC/COR/LV CLINICAL PROFILE AND INDICATIONS Indications: Suspected CAD Heart Failure: None Stress/Imaging Stress Echocardiogram: Yes Result: Positive Low RiskStress Echocardiogram: Positive Low Risk CAD Presentations: Symptom unlikely to be ischemic. CONCLUSIONS Normal coronary arteries Normal LV size, wall motion,and systolic function RECOMMENDATIONS Medical therapy DESCRIPTION OF PROCEDURE The patient arrived to the procedure lab. The risks and benefits of the procedure as well as a full description of our services here and current unavailability of surgical backup were fully explained to the patient and/or their significant other prior to the catheterization. The Timeout was completed, verifying the correct patient and procedure. The patient's procedural site was prepped and draped in the usual fashion. Local anesthetic was given subcutaneously to right radial region with Lidocaine 2%. Using a modified Seldinger technique, arterial access was obtained via the right radial artery, a 6Fr sheath was inserted. Left Coronary Artery selective angiography was performed in multiple views using a 5 Fr. 4.0 [place] catheter. Right Coronary Artery selective angiography was then performed in multiple views using a 5 Fr. 4.0 [place] catheter. Left Ventriculography was performed in LOVE projection using a 5 Fr. [place] catheter. LV to AO pullback pressures were then recorded.The arterial sheath was pulled and a TR Band was applied for hemostasis w/ 10ml air CORONARY ANGIOGRAPHY DOMINANCE: Right Dominant LEFT HEART ASSESSMENT Left Ventricular Ejection Fraction: by LV Gram 65 % Normal LV wall motion Normal Left Ventricular systolic function Normal Left Ventricular systolic function LEFT MAIN: Angiographically normal LEFT ANTERIOR DESCENDING ARTERY: Angiographically normal CIRCUMFLEX ARTERY: Angiographically normal RIGHT CORONARY ARTERY: Angiographically normal COMPLICATIONS No Complications PROCEDURE MEDICATIONS Versed 1 mg IV Fentanyl 50 mcg IV Versed 1 mg IV Oxygen: 2 L/min via nasal cannula Heparin given IA 04/04/2025 09:38:04 Verapamil 2.5mg, Ntg 100mcgs, 3000 units of Heparin given IA 04/04/2025 09:38:04 SUMMARY OF HEMODYNAMIC DATA Time AIR REST ECG 09:01:29 AO 114/59 (84) SA 09:43:14 LV 103/-5, 5 09:49:06 LV 114/-5, 7 09:49:14 LV 101/-5, 2 09:49:38 LV 109/-4, 2 09:49:44 LVp 105/-3, 5 09:49:48 AOp 110/54 (79) 09:49:53 Signed By Steve Jacinto MD On 04/04/2025 09:56:39 Steve Jacinto MD
== END 2025-04-04 11:25 | disposition home or self-care (01) ==
PROVIDERS: PCP Internal Medicine; Referring Provider Internal Medicine Cardiovascular Disease; Visit Provider Internal Medicine Cardiovascular Disease
DX: R94.31 Abnormal electrocardiogram [ECG] [EKG] (principal); Z79.890 Hormone replacement therapy; Z79.82 Long term (current) use of aspirin; E07.9 Disorder of thyroid, unspecified; R07.9 Chest pain, unspecified; R94.39 Abnormal result of other cardiovascular function study; R79.89 Other specified abnormal findings of blood chemistry
CPT/HCPCS: 93458; 99152; 99153; Q9967; C1769; C1894

== ENCOUNTER → 2025-04-11 | Outpatient (CLI) | payer MEDICARE, OTHER, SELFPAY ==
[2025-04-11 12:46] LABS: AST(SGOT) 33 U/L (<=31); Alanine Aminotransfer ALT/SGPT 28 U/L (<=34); Albumin, Serum 4.3 g/dL (3.4-4.8); Alkaline Phosphatase 110 U/L (35-104); Anion Gap 8 (5-15); BUN 10 mg/dL (4-19); BUN/Creat Ratio 17.5 RATIO (10-20); Calcium,Total 9.5 mg/dL (7.6-11.0); Carbon Dioxide 27.3 mmol/L (21.0-32.0); Chloride 105 mmol/L (98-108); Globulin 3.0 g/dL (2.2-4.2); Glucose 96 mg/dL (70-99); Potassium 5.0 mmol/L (3.3-5.1)
== END | disposition home or self-care (01) ==
LOC: LAB 11:34
PROVIDERS: PCP Internal Medicine; Referring Provider Internal Medicine; Visit Provider Internal Medicine
DX: R79.89 Other specified abnormal findings of blood chemistry (principal)
CPT/HCPCS: 36415; 80053

== ENCOUNTER → 2025-04-18 | Outpatient (CLI) | payer MEDICARE, OTHER, SELFPAY ==
--- NOTE | 2025-04-18 16:21 | MRI_ITS ---
PROCEDURE: MRCP ABDOMEN WITHOUT CONTRAST 04/18/2025 REASON FOR EXAM: ELEVATED LIVER ENZYMES, ALK PHOS. TECHNIQUE: Procedure Code: MRIMRCP Modality: MR Procedure: MRCP ABDOMEN WITHOUT CONTRAST Multiplanar and multisequence images were obtained. 3D MRCP images were obtained. CONTRAST: None COMPARISON: None FINDINGS: Exam is limited by the absence of intravenous contrast. Lung bases: Lobular mass of the right heart border an adjacent to the diaphragm is unchanged from prior CT. The density at CT is 11 Hounsfield units and on today's exam shows T2 prolongation that is fairly homogeneous. Findings suggestive of a pericardial cyst estimated to measure 7.9 x 3.8 cm. Liver: Non cirrhotic. No mass seen. Biliary: Gallbladder is normal. No evidence of biliary ductal dilation. No choledocholithiasis. Pancreas: Normal Spleen: Normal Adrenals: Normal Kidneys: Normal Peritoneum / Retroperitoneum: No free fluid or mass. Lymph Nodes: None appear enlarged Major Vessels: Bones: Mild curvature lumbar spine to the left centered at L4/5. Minimal edema superior endplate of L5 on the right with degenerative change. MRI/MRCP Abdomen without Contrast IMPRESSION: 1. Unremarkable appearance of the gallbladder and biliary tree. 2. 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 No change. Note: CT scan of the chest dated February 24, 2025 was addended to reflect this change. 3. No acute abnormality Reading Location: [id number]
== END | disposition home or self-care (01) ==
LOC: MRI 16:18
PROVIDERS: PCP Internal Medicine; Referring Provider Internal Medicine; Visit Provider Internal Medicine
DX: R79.89 Other specified abnormal findings of blood chemistry (principal); R74.8 Abnormal levels of other serum enzymes
CPT/HCPCS: 74181

== ENCOUNTER → 2025-04-26 | Outpatient (CLI) | payer MEDICARE, OTHER, SELFPAY ==
[2025-04-26 12:14] LABS: AST(SGOT) 28 U/L (<=31); Alanine Aminotransfer ALT/SGPT 31 U/L (<=34); Albumin, Serum 4.2 g/dL (3.4-4.8); Alkaline Phosphatase 104 U/L (35-104); Anion Gap 9 (5-15); BUN 14 mg/dL (4-19); BUN/Creat Ratio 22.9 RATIO (10-20); Calcium,Total 9.4 mg/dL (7.6-11.0); Carbon Dioxide 24.8 mmol/L (21.0-32.0); Chloride 104 mmol/L (98-108); Globulin 2.9 g/dL (2.2-4.2); Glucose 87 mg/dL (70-99); Lipase 42 U/L (13-75); Potassium 4.3 mmol/L (3.3-5.1)
== END | disposition home or self-care (01) ==
LOC: LAB 10:46
PROVIDERS: PCP Internal Medicine; Referring Provider Internal Medicine; Visit Provider Internal Medicine
DX: R74.8 Abnormal levels of other serum enzymes (principal); R79.89 Other specified abnormal findings of blood chemistry
CPT/HCPCS: 36415; 80053; 83690